=== PATIENT | female | born 1950 | race Caucasian/White ===

== ENCOUNTER 2016-12-23 15:51 | Inpatient (IN) | payer OTHER ==
[~2016-12-23] VITALS: Ht 161.3 cm; Wt 82.7 kg
--- NOTE | 2016-12-23 15:59 | NUR ---
PT TO ER WITH HER NEIGHBOR, PT NOTED WITH SLURRED SPEECH, STATES THAT SHE STARTED DROOLING LAST PM AND AROUND 2 PM THIS AFTERNOON WHILE ON PHONE WITH HER FRIEND AND HER FRIEND NOTED SPEECH WAS OFF AND THAT SHE TOLD HER TO GO GET HELP, PT NOTED WITH L SIDE FACIAL DROOP, ABLE TO RAISE EYEBROWS EQUALLY , EQUAL STRENGTH BILATERAL HAND GRASP . PT WALKED TO HER NEIGHBORS AND THEY DROVE HER TO ER. PT WEIGHT 182.4 AT TRIAGE. CHARGE NURSE AWARE
--- NOTE | 2016-12-23 16:09 | NUR ---
PT TEXTING ON CELL PHONE APPEARS TO HAVE DEXTERITY. EKG IN PROGRESS.
--- NOTE | 2016-12-23 16:11 | NUR ---
NERI HANKINS - [facility] [phone] AVALIABLE FOR RIDE HOME IF NEEDED
[2016-12-23] MEDS ORDERED: LISINOPRIL40 M1 PO (16:27)
[2016-12-23] MEDS ORDERED: ATORVASTATIN CA10 M1 PO (16:28)
[2016-12-23] MEDS ORDERED: MULTI-DAY VITA1 EACH PO (16:28)
[2016-12-23] MEDS ORDERED: VERAMYST10 GM NASB (16:28)
[2016-12-23] MEDS ORDERED: ZOLPIDEM TARTRA10 M1 PO (16:28)
--- NOTE | 2016-12-23 16:32 | ED NEURO DEFICIT/STROKE ---
History of Present Illness General Chief Complaint: Neuro Symptoms/ Deficit Stated Complaint: ?CVA Source: patient Exam Limitations: no limitations Vital Signs & Intake/Output Vital Signs & Intake/Output Vital Signs Date Time Temp Pulse Resp B/P Pulse O2 O2 Flow FiO2 Ox Delivery Rate 12/23 1807 72 18 143/67 96 Room Air 12/23 1552 97.1 82 18 173/84 98 Room Air Allergies Coded Allergies: NO KNOWN ALLERGIES (11/01/11) Reconcile Medications Atorvastatin Calcium 10 MG TABLET 1 TAB PO DAILY CHOLESTEROL (Reported) Fluticasone Furoate (Veramyst) 27.5 MCG/ACTUATION SPRAY.SUSP 2 SPRAY NASB PRN ALLERGIES (Reported) Lisinopril 40 MG TABLET 1 TAB PO DAILY BP (Reported) Multivitamin (Multi-Day Vitamins) 1 EACH TABLET 1 TAB PO DAILY SUPPLEMENT ( Reported) Zolpidem Tartrate 10 MG TABLET 1 TAB PO PRN SLEEP (Reported) Triage Note: PT TO ER WITH HER NEIGHBOR, PT NOTED WITH SLURRED SPEECH, STATES THAT SHE STARTED DROOLING LAST PM AND AROUND 2 PM THIS AFTERNOON WHILE ON PHONE WITH HER FRIEND AND HER FRIEND NOTED SPEECH WAS OFF AND THAT SHE TOLD HER TO GO GET HELP, PT NOTED WITH L SIDE FACIAL DROOP, ABLE TO RAISE EYEBROWS EQUALLY , EQUAL STRENGTH BILATERAL HAND GRASP . PT WALKED TO HER NEIGHBORS AND THEY DROVE HER TO ER. PT WEIGHT 182.4 AT TRIAGE Triage Nurses Notes Reviewed? yes HPI: Patient presents for evaluation of drooling from the left side of her mouth with slurred speech that began 2 PM today, abruptly, while speaking with a family member. She denies any associated extremity weakness. He denies any prior episodes. There is nothing that seems to make the drooling better. With more specific questioning the patient now admits that she began drooling yesterday and noticed the slurred speech beginning today. The drooling has been constant since onset. Past History Travel History Traveled to [place] past 21 day No Medical History Any Pertinent Medical History? 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 No Review of Systems Review of Systems Constitutional: Reports: no symptoms. EENTM: Reports: no symptoms. Respiratory: Reports: no symptoms. Cardiovascular: Reports: no symptoms. GI: Reports: no symptoms. Genitourinary: Reports: no symptoms. Musculoskeletal: Reports: no symptoms. Skin: Reports: no symptoms. Neurological/Psychological: Reports: see HPI. Hematologic/Endocrine: Reports: no symptoms. Immunologic/Allergic: Reports: no symptoms. All Other Systems: Reviewed and Negative Physical Exam Physical Exam General Appearance: EE BELOW Cranial Nerves: SEE BELOW Comments: Gen.: Well-nourished, well-developed, no acute respiratory distress. Head: Normocephalic, atraumatic. Face: Normal sensation to light touch bilaterally Eyes: Normal inspection bilaterally, PERRLA, EOMI Ears: Normal inspection bilaterally Nose: Normal inspection Throat/mouth : Moist mucosa, drooling from the left side of the mouth Neck: Supple, full range of motion, no goiter Heart: Regular rate and rhythm, no murmurs rubs or gallops Lungs: Clear to auscultation bilaterally with normal air entry Chest: Nontender Back: Normal range of motion Abdomen: Soft, nontender, nondistended, normal bowel sounds Extremities: Normal range of motion grossly, equal radial pulses, no cyanosis clubbing or edema, no apparent weakness or dysmetria Neurologic: Left mouth droop and drooling with sparing of the left forehead, speech is slurred Skin: warm and dry Psychiatric: Calm, cooperative, no apparent delusions or hallucinations Core Measures CVA/TIA Diagnosis: No Severe Sepsis Present: No Septic Shock Present: No Progress Differential Diagnosis: Koch's Palsy, intracranial mass/tumor, stroke Plan of Care: Orders Procedure Date/time Status Nothing by Mouth 12/24 B Active Misc Message 12/23 185 Active ED Holding Orders 12/23 1852 Active Vital Signs 12/23 1852 Active Code Status 12/23 1852 Active Patient Data 12/23 1842 Active MRI-HEAD W/O LEA 12/23 1724 Active PROTHROMBIN TIME 12/23 1631 Complete CBC WITHOUT DIFFERENTIAL 12/23 1631 Complete BASIC METABOLIC PANEL 12/23 1631 Complete EKG 12/23 1606 Active Laboratory Tests 12/23/16 1639: Anion Gap 12, Estimated GFR > 60, BUN/Creatinine Ratio 22.9, Glucose 101 H, Calcium 9.6, PT 11.5, INR 1.10, CBC w Diff NO MAN DIFF REQ, RBC 4.70, MCV 91.0, MCH 30.5, RDW 12.8, MPV 7.8, Gran % 68.8, Lymphocytes % 22.3, Monocytes % 7.3, Eosinophils % 1.1, Basophils % 0.5, Absolute Granulocytes 6.1, Absolute Lymphocytes 2.0, Absolute Monocytes 0.7 H, Absolute Eosinophils 0.1, Absolute Basophils 0, PUBS MCHC 33.6 Initial ED EKG: NSR, rate (87), no ST T wave changes Comments: PER RADIOLOGIST: EDEMA OF RIGHT FRONTAL REGION WITH POSSIBLE CENTRAL MASS. SLIGHT MASS EFFECT. Departure Departure Disposition: STILL A PATIENT Condition: Stable Clinical Impression Primary Impression: Brain tumor Secondary Impressions: Facial droop Referrals: DONNY SANCHEZ MD (PCP/Family) Departure Forms: Customer Survey General Discharge Information Admission Note Spoke With: EVAN OLMOS MD Documentation of Exam: Documentation of any treatments & extenuating circumstances including Concerns Regarding Discharge (functional status, medication knowledge or non-compliance, living conditions, etc.) that warrant an admission rather than observation: Patient has a newly diagnosed brain tumor with regional edema and mass effect. She also has a left mouth droop with drooling. She is now at high risk of seizures and worsening strokelike symptoms given the mass effect of her tumor. The patient should be treated with IV antiseizure medications and IV steroids to prevent seizures and treat the associated edema. She should have a I'm very malignancy survey for possible metastatic disease to the brain. Hematology oncology and neurology consultations should be considered for multidisciplinary treatment. The patient will require a multiple day hospitalization to fully evaluate this patient's unfortunate disease.
--- NOTE | 2016-12-23 16:41 | NUR ---
PT SPEECH IS THICK BUT GAIT STEADY, ALERT COOP, PT IS VERY DIFFICULT TO DIRECT, PT HAS HER OWN AGENDA AT HER OWN PACE AND WILL NOT BE HURRIED, PT ASKED SEVERAL TIMES TO GET ONTO STRETCHER OFR LAB DRAW, CT TO ROOM FOR CT BUT PT WAS STANDING AT BEDSIDE AND INSISTED ON FINISHING WHAT SHE WAS DOING.
--- NOTE | 2016-12-23 16:46 | NUR ---
STROKE ALERT CALLED AT THIS TIME PER MD LOWERY
[2016-12-23 16:53] LABS: ABSOLUTE BASOPHIL COUNT 0 /CUMM (0.0-0.2); ABSOLUTE EOSINOPHIL COUNT 0.1 /CUMM (0.0-0.7); ABSOLUTE GRANULOCYTE CT 6.1 /CUMM (1.4-6.5); ABSOLUTE MONOCYTE COUNT 0.7 /CUMM (0.10-0.60); BASOPHIL % 0.5 % (0.0-2.0); EOSINOPHIL % 1.1 % (0-5); GRANULOCYTE % 68.8 % (42.2-75.2); HEMATOCRIT 42.8 % (37-47); MEAN CORPUSCULAR HGB 30.5 PG (27.0-31.0); MEAN CORPUSCULAR HGB CONC 33.6 G/DL (33.0-37.0); MEAN PLATELET VOLUME 7.8 FL (7.4-10.4); PLATELET COUNT 391 /CUMM (130-400); RBC DISTRIBUTION WIDTH 12.8 % (11.5-14.5); WHITE BLOOD CELL COUNT 8.9 /CUMM (4.8-10.8)
[2016-12-23 17:06] LABS: PT 11.5 SEC (9.4-12.5)
--- NOTE | 2016-12-23 17:07 | CT SCAN REPORT ---
EXAMINATION: CT HEAD WITHOUT CONTRAST CLINICAL INFORMATION: Left mild drooling and slurred speech. COMPARISON: None. TECHNIQUE: Contiguous axial imaging was performed from the skull base to vertex without intravenous administration of contrast. DLP: 600.7 mGy-cm. FINDINGS: There is a rounded area of vasogenic edema within the right frontal lobe posterolaterally with surrounding sulcal effacement and mild mass effect upon the right lateral ventricle. There is a rounded focus of central hypoattenuation centered within this region of edema as seen on image 27/64 of series 2, measuring approximately 2 mm in transverse diameter. The edema extends into the benjamin radiata and superior aspect of the right basal ganglia. No additional lesions are identified. No midline shift or herniation. Overlying holcomb matter appears well-preserved and areas, though there is loss of the normal holcomb matter signal superiorly. No acute intracranial hemorrhage or extra-axial fluid collections are identified. Aside from the mass effect upon the right lateral ventricle, the ventricles are normal in size. The osseous structures and soft tissues are normal. The mastoid air cells and visualized portions of the paranasal sinuses are well aerated. IMPRESSION: Large rounded area of vasogenic edema in the right posterior frontal lobe producing local mass effect. A subtle 2 cm rounded lesion is centered within this region of edema and is concerning for neoplasm. Infection is also on the differential. Further evaluation with MRI with and without contrast is advised. No superimposed infarctions are identified, though the degree of edema superiorly does cause loss of the normal cortical holcomb matter density, limiting sensitivity. This critical result was discussed by telephone with Dr. Koch at 4:56 PM on 12/23/2016 .
--- NOTE | 2016-12-23 18:13 | NUR ---
PER POLYGRAPH OPERATOR WILL HAVE TO WAIT FOR PHARMACIST FOR FILTER.
--- NOTE | 2016-12-23 20:04 | NUR ---
[facility] ASSIGNMENT [phone]
--- NOTE | 2016-12-23 20:16 | NUR ---
REPORT GIVEN TO KIRTI KATHLEEN
--- NOTE | 2016-12-23 20:39 | NUR ---
PT ASKING FOR FOOD. REMINDED SHE IS NPO AT THIS TIME.
[2016-12-23 21:00] VITALS: BP 142/70
--- NOTE | 2016-12-23 21:33 | History & Physical ---
ANGY VIDAL MD 12/23/16 2132: General Information and HPI MD Statement: I have seen and personally examined EPI TYSON and documented this H&P. The patient is a 66 year old F who presented with a patient stated chief complaint of [drooling and slurring of speech]. 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 Symptoms started suddenly without any weakness/tingling/sensory loss. She is at her baseline able to walk around. She denies any difficulty swallowing, aspiration, changes in vision, syncopal episodes, lightheadedness, dizziness. She also denies any recent infections, cough, chest pain, shortness of breath. She denies any recent changes in mentation, weight. She denies any nausea, vomiting, diarrhea, changes in bowel/bladder habits, abdominal pain. She denies any cough with hemoptysis. Of note: Patient had right medial visual field defect along with scotomas. She passed bedside swallow evaluation. Allergies/Medications Allergies: Coded Allergies: NO KNOWN ALLERGIES (11/01/11) Home Med list Atorvastatin Calcium 10 MG TABLET 1 TAB PO 1700 HLD (Reported) Fluticasone Furoate (Veramyst) 27.5 MCG/ACTUATION SPRAY.SUSP 2 SPRAY NASB PRN ALLERGIES (Reported) Lisinopril 40 MG TABLET 1 TAB PO AT BEDTIME HTN (Reported) Multivitamin (Multi-Day Vitamins) 1 EACH TABLET 1 TAB PO DAILY SUPPLEMENT ( Reported) Zolpidem Tartrate 10 MG TABLET 1 TAB PO PRN SLEEP (Reported) Compliance With Home Meds: FAIR Past History Travel History Traveled to [place] past 21 day No Medical History Neurological: NONE EENT: RETINAL ARTERY OCCLUSION Cardiovascular: hypertension Respiratory: NONE Gastrointestinal: NONE Hepatic: NONE Renal: NONE Musculoskeletal: NONE Psychiatric: NONE Endocrine: NONE Blood Disorders: NONE Cancer(s): NONE 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 Home Who Do You Live With? self Services at Home: None Smoking Status: Never Smoked ETOH Use: denies use Illicit Drug Use: denies illicit drug use Functional Ability ADLs Independent: dressing, eating, toileting, bathing. Ambulation: independent IADLs Independent: shopping, housework, finances, food prep, telephone, transportation , medication admin. Review of Systems Review of Systems Constitutional: Reports: see HPI. Denies: malaise, weakness, unexplained weight loss. EENTM: Reports: see HPI. Cardiovascular: Reports: no symptoms, see HPI. Respiratory: Reports: no symptoms, see HPI. GI: Reports: no symptoms, see HPI. Genitourinary: Reports: no symptoms, see HPI. Neurological/Psychological: Reports: emotional problems, headache. Denies: numbness, paresthesia, pre- existing deficit, petit mal seizures, tingling, tonic-clonic seizures. Hematologic/Endocrine: Reports: no symptoms. All Other Systems: Reviewed and Negative Comments ROS negative except the above. Exam & Diagnostic Data Last 24 Hrs of Vital Signs/I&O Vital Signs Date Time Temp Pulse Resp B/P Pulse O2 O2 Flow FiO2 Ox Delivery Rate 12/24 0127 97.6 96 20 140/80 12/24 0011 98.1 87 20 166/92 99 Room Air 12/23 2100 97.9 76 18 142/70 95 Room Air 12/23 1930 99.4 78 18 169/70 98 Room Air 12/23 1807 72 18 143/67 96 Room Air 12/23 1552 97.1 82 18 173/84 98 Room Air Intake & Output 12/24 0800 12/24 0000 12/23 1600 Intake Total 240 Output Total 300 Balance -60 Intake, Oral 240 Output, Urine 300 Patient 82.554 kg 82.667 kg Weight Physical Exam General Appearance Alert, Oriented X3, Cooperative, No Acute Distress Skin No Rashes, No Breakdown HEENT Atraumatic, PERRLA, EOMI Neck Supple, No JVD Cardiovascular Regular Rate, Normal S1, Normal S2, No Murmurs Lungs Clear to Auscultation, Normal Air Movement Abdomen Normal Bowel Sounds, Soft, No Tenderness Neurological Normal Gait, Normal Speech, Strength at 5/5 X4 Ext, Normal Tone, Sensation Intact, Cranial Nerves 3-12 NL, Reflexes 2+, weakness on the right side of the cheek without any sensory loss. Extremities No Clubbing, No Cyanosis, No Edema Vascular Pulses Symmetrical Body Front and Back (Adult) 1) right sided drooling and weakness Last 24 Hrs of Labs/Valentino: Laboratory Tests 12/23/16 1639: Anion Gap 12, Estimated GFR > 60, BUN/Creatinine Ratio 22.9, Glucose 101 H, Calcium 9.6, PT 11.5, INR 1.10, CBC w Diff NO MAN DIFF REQ, RBC 4.70, MCV 91.0, MCH 30.5, RDW 12.8, MPV 7.8, Gran % 68.8, Lymphocytes % 22.3, Monocytes % 7.3, Eosinophils % 1.1, Basophils % 0.5, Absolute Granulocytes 6.1, Absolute Lymphocytes 2.0, Absolute Monocytes 0.7 H, Absolute Eosinophils 0.1, Absolute Basophils 0, PUBS MCHC 33.[address] Other Results CT head IMPRESSION: Large rounded area of vasogenic edema in the right posterior frontal lobe producing local mass effect. A subtle 2 cm rounded lesion is centered within this region of edema and is concerning for neoplasm. Infection is also on the differential. Further evaluation with MRI with and without contrast is advised. No superimposed infarctions are identified, though the degree of edema superiorly does cause loss of the normal cortical holcomb matter density, limiting sensitivity. 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 ER Vital signs Temperature 91.4, pulse 78, blood pressure 173/84 mmHg, on room air Labs are unremarkable CT head IMPRESSION: Large rounded area of vasogenic edema in the right posterior frontal lobe producing local mass effect. A subtle 2 cm rounded lesion is centered within this region of edema and is concerning for neoplasm. Infection is also on the differential. Further evaluation with MRI with and without contrast is advised. No superimposed infarctions are identified, though the degree of edema superiorly does cause loss of the normal cortical holcomb matter density, limiting sensitivity. Plan Admit to general medicine floor Brain mass with vasogenic edema on CT scan * slurring speech along with drooling on left side * Facial nerve lower motor neuron disease is the only apparent deficit * Received a single dose of IV Dilantin 1000 milligrams and IV DEXA 8 mg in ER * Continue IV dexamethasone 4 mg every 6 hours, along with Dilantin 100 mg every 8 by mouth. * Neuro consult in a.m. * MRA brain, Friday * Neurochecks every 4 hours History of hypertension * Continue her home medication lisinopril Hyperlipidemia * Continue atorvastatin DVT prophylaxis * Alps CODE STATUS * Full code As Ranked By This Provider Problem List: 1. Brain tumor 2. Facial droop 3. RT CRAO Core Measures/Miscellaneous Acute Coronary Syndrome ACS Diagnosis: No Cerebrovascular Accident CVA/TIA Diagnosis: No Congestive Heart Failure CHF Diagnosis: No Venous Thromboembolism VTE Risk Factors: Cancer/chemo/oth therapy VTE Prophylaxis Ordered Inpt: Pharm- Lovenox No Mech VTE prophylaxis d/t: No contraindications No VTE Pharm Prophylaxis d/t: No contraindications VTE Diagnosis: No VTE Type: NONE VTE Confirmed by (Test): NONE Severe Sepsis Severe Sepsis Present: No Septic Shock Septic Shock Present: No Miscellaneous Documentation Attending Case Discussed With: EVAN OLMOS MD Primary Care Physician: DONNY SANCHEZ MD Patient sees these Specialists Unknown Level of Patient Care: General Medicine JONY STAPLETON MD 12/24/16 0523: Resident Review Statement Resident Statement: examined this patient, discussed with international exchange coordinator, agreed with international exchange coordinator, reviewed EMR data (avail), reviewed images, amended to note Other Findings: This is 66 year female with past medical history of right retinal artery occlusion in 1998, hypertension, left carotid artery disease, ocular migraine presented to ER with chief complaint of left-sided drooling associated with slurred speech which started around a day prior to admission. Patient was fine up until one night prior to admission when while talking to her friend over phone she developed slurring of speech. Her symptoms persisted over past 24 hours with increased drooling from the left side corner of the mouth this afternoon, she decided to come to ER for further evaluation. Patient reported no other associated weakness of extremities, tingling, sensory loss, headache, difficulty swallowing, change in vision, loss of consciousness, seizure like activity, fever, chills, recent travel, abdominal pain, any GI symptoms or upper respiratory infection. Patient had a colonoscopy 20 years prior to admission and was normal at that time. Her vitals on admission were T 97.1, HR 82, RR 18, BP 173/84, O2 sat 98% on room air. On physical exam patient noted completely alert oriented 3 in no acute distress , HEENT PERRLA EOMI, noted left sided did facial droop, heart S1-S2 normal without murmur, lungs clear on auscultation, abdomen soft nontender nondistended with preserved bowel sounds, no peripheral edema, no focal gross neuro deficit, strength 5/5 in all 4 extremities with preserved sensory, Babinski negative, [id number] test negative, visual field intact except right eye noted nasal visual field defect which has been there since 1998. Labs noted WBC 8.9, H&H 14.4/42.8, normal electrolytes, BUN 16, creatinine 0.7, blood glucose 101, INR 1.10 CT head revealed large rounded area of vasogenic edema in right posterior frontal lobe producing local mass effect with 2 cm lesion within this area concerning for neoplasm EKG noted with normal sinus rhythm at rate of 87, no acute ST-T changes, QTc 4 57 Assessment: This is 66 year female with past medical history of retinal artery occlusion, ocular migraine, hypertension, left carotid artery disease presented from home with chief complaint of one-day history of left-sided facial droop with slurring of speech found to have large right posterior frontal lobe vasogenic edema with 2 cm mass concerning for neoplasm. 1. Brain lesion with Vasogenic edema of right posterior frontal lobe - Admit to general medicine floor - Monitor neuro checks every 4 hourly - Patient received loading dose phenytoin and Decadron in ER - Continue Decadron 4 mg every 6 hourly and phenytoin 100 mg every 8 hourly for seizure precaution - Neurology consult - Rule out any primary or secondary source of malignancy including screening colonoscopy and mammogram as outpatient - Get MRI of brain 2. Hypertension Continue home dose lisinopril 40 mg daily 3. Hyperlipidemia Continue statin 4. DVT prophylaxis Mechanical due to concern of intracranial bleed 5. Full code NICKOLASANASTASIIAMOLLY 12/24/16 0615: Attending MD Review Statement Attending Statement Attending MD Statement: examined this patient, discuss w/resident/PA/MARKET CONSULTANT, agreed w/resident/PA/MARKET CONSULTANT, discussed with family, reviewed EMR data (avail), reviewed images, amended to note Attending Assessment/Plan: Cc: Left-sided facial droop and drooling slurred speech PMHx: HTN, retired artery occlusion, ocular migraine Patient came with left-sided facial drooping and drooling started yesterday, slurred speech started today. She was ambulating well and no other neurological weakness, no choking on food. Complete 14 point ROS negative, no constitutional symptoms with weight loss or night sweats. No recent travels Vitals: Afebrile, pulse, RRR, blood pressure, O2 saturation within acceptable range. On exam: A O 3, coherent, pupils equal reactive bilaterally, left-sided facial droop and obvious drooling. Strength in upper extremities and lower extremities intact, gait normal. RS: Clear to auscultate bilaterally. CVS: S1-S2 , RRR. Abdomen: Obese, soft, NT, bowel sounds present no dependent edema Labs: CBC, BMP unremarkable. CT head: large rounded area of vasogenic edema in the right posterior frontal lobe producing local mass effect, concern of neoplasm. Assessment and plan #1 brain lesion with vasogenic edema: MRI was ordered in ER but could not get done. Neurologic consult in a.m., continue dexamethasone, continue Dilantin by mouth until seen by neurologist for seizure prophylaxis. ? Infectious process, no recent travels, await MRI for further workup, patient appeared very anxious after discussing about brain lesion and further plan. #2 HTN: Continue home medications #3 DVT prophylaxis with Lovenox, adequate pain control.
[2016-12-24 00:11] VITALS: BP 166/92
--- NOTE | 2016-12-24 06:18 | Admission Certification ---
Admission Certification Certification Statement - As attending physician, I certify that at the time of - admission, based on clinical presentation, severity of - symptoms, need for further diagnostic testing and - therapeutic interventions, and risk of adverse outcomes - without in-hospital treatment, in my clinical assessment, - this patient requires an acute hospital stay for a minimum - of two nights or longer. I have also considered psychsocial - factors such as support system, advanced age, financial - issues, cognitive issues, and failed out-patient treatments, - past re-admission history, safety of patient, and lack of - compliance as applicable. Specific rationale supporting this admission is: Right-sided brain lesion with vasogenic edema with mass effect
[2016-12-24 06:36] VITALS: BP 146/70
--- NOTE | 2016-12-24 07:13 | PN- Housestaff ---
Subjective Follow-up For: Brain mass Slurred speech Subjective: Patient seen and examined. She is seen walking around with normal gait. She appears to be in no acute distress. She admits that she is concerned about her "brain tumor". She does not feel like she has incurred any new neurological problems as she has been walking around all morning and does not feel weak, confused, or forgetful. She reports persistence of her slurred speech, drooped face, and persistent drooling. Otherwise she denies any blurred/double vision, confusion, gait imbalance, dizziness, headache, fever, chills, chest pain, palpitations, shortness of breath, cough, nausea, vomiting, diarrhea, numbness/tingling. No overnight events reported. Review of Systems Constitutional: Reports: see HPI. Objective Last 24 Hrs of Vital Signs/I&O Vital Signs Date Time Temp Pulse Resp B/P Pulse O2 O2 Flow FiO2 Ox Delivery Rate 12/24 0636 98.7 65 18 146/70 96 Room Air 12/24 0127 97.6 96 20 140/80 12/24 0011 98.1 87 20 166/92 99 Room Air 12/23 2100 97.9 76 18 142/70 95 Room Air 12/23 1930 99.4 78 18 169/70 98 Room Air 12/23 1807 72 18 143/67 96 Room Air 12/23 1552 97.1 82 18 173/84 98 Room Air Intake & Output 12/24 1600 12/24 0800 12/24 0000 Intake Total 500 240 Output Total 300 Balance 500 -60 Intake, IV 0 Intake, Oral 500 240 Number 0 Bowel Movements Output, Urine 300 Patient 82.554 kg Weight Physical Exam General Appearance: Alert, Oriented X3, Cooperative, No Acute Distress Other Physical Findings: General -well-developed, well-nourished elderly woman in no acute distress HEENT - NCAT, PERRL, EOMI, anicteric sclera Cardio - S1, S2 w/o murmurs/gallops/rubs Resp - CTA bilaterally w/o wheezing/rhochi/crackles GI - soft, nontender, nondistended, bowel sounds present Neuro - Awake and alert, CN II - XII grossly intact, left sided facial droop with drooling, slurred speech, gait intact, coordination intact, strength 5/5 in all 4 extremities Extremities - no edema, pulses intact Current Medications: Current Medications Sig/Arnoldo Start time Last Medication Dose Route Stop Time Status Admin Acetaminophen 650 MG Q6P PRN 12/23 2215 AC 12/24 PO 1150 Atorvastatin Calcium 10 MG 1700 12/24 1700 AC PO Dexamethasone 4 MG Q6 12/24 0130 AC 12/24 PO 1149 Dexamethasone 8 MG ONCE ONE 12/23 1730 DC 12/23 IV 12/23 1731 1811 Lisinopril 40 MG DAILY@2200 12/24 2200 AC PO Lisinopril 40 MG DAILY 12/23 2200 DC 12/24 PO 0127 Phenytoin 100 MG Q8 12/24 0600 AC 12/24 PO 0603 Phenytoin 0 .STK-MED ONE 12/23 1821 DC .ROUTE Phenytoin 1,000 MG ONCE ONE 12/23 1730 DC 12/23 Sodium Chloride 250 ML IV 12/23 1801 1834 Zolpidem Tartrate 10 MG AT BEDTIME PRN 12/23 2200 AC 12/24 PO 0131 Last 24 Hrs of Lab/Valentino Results Last 24 Hrs of Labs/Mics: Laboratory Tests 12/24/16 0805: Anion Gap 15, Estimated GFR > 60, BUN/Creatinine Ratio 20.0 12/23/16 1639: Anion Gap 12, Estimated GFR > 60, BUN/Creatinine Ratio 22.9, Glucose 101 H, Calcium 9.6, PT 11.5, INR 1.10, CBC w Diff NO MAN DIFF REQ, RBC 4.70, MCV 91.0, MCH 30.5, RDW 12.8, MPV 7.8, Gran % 68.8, Lymphocytes % 22.3, Monocytes % 7.3, Eosinophils % 1.1, Basophils % 0.5, Absolute Granulocytes 6.1, Absolute Lymphocytes 2.0, Absolute Monocytes 0.7 H, Absolute Eosinophils 0.1, Absolute Basophils 0, PUBS MCHC 33.6 Assessment/Plan Assessment: Patient continues to experience left sided facial droop, slurred speech, and drooling. She appears confused, tangential, and lacks insight into her condition. She was seen by neurology today for which recommendations to obtain an MRI and EEG were made. She is to be continued off anti-epileptics. Decadron is continued, fingersticks monitored. Frontal Lobe Tumor with Vasogenic edema: Left sided facial droop and slurred speech without any other obvious neurological deficits on admission. CT Head demonstrates frontal lobe tumor with associated vasogenic edema. -Decadron 4mg PO Q6H -Atorvastatin 10mg PO Daily -Neurology Consult -F/U MRI tomorrow -F/U EEG Hypertension - stable, continue lisinopril Pain Plan: -Acetaminophen 650mg PO Q6H PRN PAIN 1-3 Diet - Heart Healthy Diet DVT PPx - Mechanical Code Status - FULL CODE Problem List: 1. Brain tumor Pain Ratin Pain Location: None Pain Goal: Remain pain free Pain Plan: As noted in plan Tomorrow's Labs & Rationales: None
[2016-12-24 14:08] VITALS: BP 122/74
--- NOTE | 2016-12-24 15:29 | Cons- Neurology ---
General Information and HPI Consulting Request Date of Consult: 12/24/16 Requested By: DIMITRI SHOEMAKER MD Reason for Consult: Left sided weakness and slurred speech Source of Information: patient, old records Exam Limitations: no limitations History of Present Illness: This is a pleasant 66 year old woman who came into the hospital after developing new slurred speech. Her friend spoke to her on the phone and urged her to come to the hospital for evaluation. She notes, that over the last 3 days she saw gradual onset of left facial droop with drooloing and then slurred speech. She denies any note of left sided weakness (despite having it). She denies any tingling or numbness. Denies any other focal symptom or headache. In the ED she was found to have a right frontal mass with surrounding edema on NCHCT. This mas was otherwise poorly defined. She denies any other weight loss or systemic symptoms. She never lost consciousness. Allergies/Medications Allergies: Coded Allergies: NO KNOWN ALLERGIES (11/01/11) Home Med List: Atorvastatin Calcium 10 MG TABLET 1 TAB PO 1700 HLD (Reported) Fluticasone Furoate (Veramyst) 27.5 MCG/ACTUATION SPRAY.SUSP 2 SPRAY NASB PRN ALLERGIES (Reported) Lisinopril 40 MG TABLET 1 TAB PO AT BEDTIME HTN (Reported) Multivitamin (Multi-Day Vitamins) 1 EACH TABLET 1 TAB PO DAILY SUPPLEMENT ( Reported) Zolpidem Tartrate 10 MG TABLET 1 TAB PO PRN SLEEP (Reported) Current Medications: Current Medications Sig/Arnoldo Start time Last Medication Dose Route Stop Time Status Admin Acetaminophen 650 MG Q6P PRN 12/23 2215 AC 12/24 PO 1150 Atorvastatin Calcium 10 MG 1700 12/24 1700 AC PO Dexamethasone 4 MG Q6 12/24 0130 AC 12/24 PO 1149 Dexamethasone 8 MG ONCE ONE 12/23 1730 DC 12/23 IV 12/23 1731 1811 Lisinopril 40 MG DAILY@2200 12/24 2200 AC PO Lisinopril 40 MG DAILY 12/23 2200 DC 12/24 PO 0127 Phenytoin 100 MG Q8 12/24 0600 AC 12/24 PO 1422 Phenytoin 0 .STK-MED ONE 12/23 1821 DC .ROUTE Phenytoin 1,000 MG ONCE ONE 12/23 1730 DC 12/23 Sodium Chloride 250 ML IV 12/23 1801 1834 Zolpidem Tartrate 10 MG AT BEDTIME PRN 12/23 2200 AC 12/24 PO 0131 Review of Systems Review of Systems: Otherwise normal to the ten point complete review of system. 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 Home Who Do You Live With? self Services at Home: None Smoking Status: Never Smoked ETOH Use: denies use Illicit Drug Use: denies illicit drug use Functional Ability ADLs Independent: dressing, eating, toileting, bathing. Ambulation: independent IADLs Independent: shopping, housework, finances, food prep, telephone, transportation , medication admin. Exam & Diagnostic Data Vital Signs and I&O Vital Signs Date Time Temp Pulse Resp B/P Pulse O2 O2 Flow FiO2 Ox Delivery Rate 12/24 1408 97.8 70 20 122/74 93 Room Air 12/24 0636 98.7 65 18 146/70 96 Room Air 12/24 0127 97.6 96 20 140/80 12/24 0011 98.1 87 20 166/92 99 Room Air 12/23 2100 97.9 76 18 142/70 95 Room Air 12/23 1930 99.4 78 18 169/70 98 Room Air 12/23 1807 72 18 143/67 96 Room Air 12/23 1552 97.1 82 18 173/84 98 Room Air Intake & Output 12/24 1600 12/24 0800 12/24 0000 Intake Total 1000 500 240 Output Total 300 Balance 1000 500 -60 Intake, IV 0 Intake, Oral 1000 500 240 Number 0 Bowel Movements Output, Urine 300 Patient 182 lb Weight Physical Exam: Alert and oriented x3. Fluent and comprehends. Slightly dysarthric. S1 and S2 are normal. RRR. EOMI with right gaze horizontal nystagmus, MAICO, lower left facial droop with drooling from the corner of the mouth. Tongue is midline and uvula raises equally. Hearing intact and trapezius is strong. VF are full. Strength is 5/5 throughout with exception of proximal weakness +4/5 on the left and a resultant drift. Sensory exam is normal throughout including double simultaneous stimulation. Upgoing toe on the left. FNF is normal. Gait deferred. Last 48 Hours of Lab Results: Laboratory Tests 12/24 12/23 0805 1639 Chemistry Sodium (137 - 145 mmol/L) 137 139 Potassium (3.5 - 5.1 mmol/L) 4.6 4.4 Chloride (98 - 107 mmol/L) 102 103 Carbon Dioxide (22 - 30 mmol/L) 21 L 24 Anion Gap (5 - 16) 15 12 BUN (7 - 17 mg/dL) 16 16 Creatinine (0.5 - 1.0 mg/dL) 0.8 0.7 Estimated GFR (>60 ml/min) > 60 > 60 BUN/Creatinine Ratio (7 - 25 %) 20.0 22.9 Glucose (65 - 99 mg/dL) 101 H Calcium (8.4 - 10.2 mg/dL) 9.6 Coagulation PT (9.4 - 12.5 SEC) 11.5 INR (0.90 - 1.19) 1.10 Hematology CBC w Diff NO MAN DIFF REQ WBC (4.8 - 10.8 /CUMM) 8.9 RBC (4.20 - 5.40 /CUMM) 4.70 Hgb (12.0 - 16.0 G/DL) 14.4 Hct (37 - 47 %) 42.8 MCV (81.0 - 99.0 FL) 91.0 MCH (27.0 - 31.0 PG) 30.5 RDW (11.5 - 14.5 %) 12.8 Plt Count (130 - 400 /CUMM) 391 MPV (7.4 - 10.4 FL) 7.8 Gran % (42.2 - 75.2 %) 68.8 Lymphocytes % (20.5 - 51.1 %) 22.3 Monocytes % (1.7 - 9.3 %) 7.3 Eosinophils % (0 - 5 %) 1.1 Basophils % (0.0 - 2.0 %) 0.5 Absolute Granulocytes (1.4 - 6.5 /CUMM) 6.1 Absolute Lymphocytes (1.2 - 3.4 /CUMM) 2.0 Absolute Monocytes (0.10 - 0.60 /CUMM) 0.7 H Absolute Eosinophils (0.0 - 0.7 /CUMM) 0.1 Absolute Basophils (0.0 - 0.2 /CUMM) 0 PUBS MCHC (33.0 - 37.0 G/DL) 33.6 Imaging/Other Studies: NCHCT>> IMPRESSION: Large rounded area of vasogenic edema in the right posterior frontal lobe producing local mass effect. A subtle 2 cm rounded lesion is centered within this region of edema and is concerning for neoplasm. Infection is also on the differential. Further evaluation with MRI with and without contrast is advised. No superimposed infarctions are identified, though the degree of edema superiorly does cause loss of the normal cortical holcomb matter density, limiting sensitivity. This critical result was discussed by telephone with Dr. Koch at 4:56 PM on 12/23/2016 . DICTATED BY: SHERYL GRACIA MD DATE/TIME DICTATED:12/23/161649 NURSING CLERK:JULEE DATE/TIME TRANSCRIBED:12/23/161649 CONFIDENTIAL, DO NOT COPY WITHOUT APPROPRIATE AUTHORIZATION. Assessment/Plan Assessment: 66 year old woman with previous retinal artery occlusion, now presenting with new onset left sided weakness and slurred speech. NCHCT reveals a large hypodensity that may be indicative of a mass consistent with the gradual progression of the symptoms. An atypical CVA cannot be ruled out without an MRI, although is less likely. Recommendations: 1. MRI brain with and without contrast. 2. Agree with Decadrpon 4mg q6h. 3. No indication for seizure prophylaxis unless the patient actually had a seizure which she did not. Stop Phenytoin. 4. EEG 5. Blood pressure control. 6. Once MRI reviewed will decide whether needs a screening CT of chest, abdomen and pelvis. YC Consult Acknowledgment - Thank you for your consult request.
--- NOTE | 2016-12-24 16:14 | PN- Att Addend ---
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 Pt found to have mass with vasogenic edema on CT head. Pt seen by neurology- planned for MRI tomorrow. cont on decadron. will f/u on Finger sticks.
[2016-12-24 22:21] VITALS: BP 140/70
--- NOTE | 2016-12-25 05:44 | NUR ---
NURSING NOTE: PT REQUESTED BAG FOR CELL PHONE. PT HAS BLACK FLIP PHONE WHICH SHE REMOVED BATTERY AND BACKING FROM. ALL 3 PIECES PLACED IN A BAG & IN PT'S NIGHT STAND.
[2016-12-25 06:44] VITALS: BP 140/70
--- NOTE | 2016-12-25 07:25 | PN- Housestaff ---
Subjective Follow-up For: Brain mass Slurred speech Subjective: Patient seen and examined. She is seen lying upright in her bed resting comfortably. He appears to be in no acute distress. She reports that her memory is "very good" today and that her speech has returned to normal. She does admit to having persistence of the left-sided facial droop, but otherwise does not notice any new neurologic issues that she is aware of. She says she gets up and walks around a lot and hasn't noticed any issue with this. She is oriented to person place and time. She still expresses concerns about her dog, possible surgical interventions and has many questions regarding her care. Additionally she denies any blurred/double vision, dizziness/lightheadedness, headache, fever, chills, chest pain, palpitations, shortness of breath, nausea, vomiting, diarrhea. No overnight events reported. Review of Systems Constitutional: Reports: see HPI. Objective Last 24 Hrs of Vital Signs/I&O Vital Signs Date Time Temp Pulse Resp B/P Pulse O2 O2 Flow FiO2 Ox Delivery Rate 12/25 1527 98.2 78 20 130/80 97 12/25 0644 98.1 83 20 140/70 95 Room Air 12/24 2221 98.3 86 18 140/70 96 Room Air 12/24 2152 84 142/80 Intake & Output 12/25 1600 12/25 0800 12/25 0000 Intake Total 800 650 400 Output Total Balance 800 650 400 Intake, Oral 800 650 400 Physical Exam General Appearance: Alert, Oriented X3, Cooperative, No Acute Distress Other Physical Findings: General -well-developed, well-nourished elderly woman in no acute distress HEENT - NCAT, PERRL, EOMI, anicteric sclera Cardio - S1, S2 w/o murmurs/gallops/rubs Resp - CTA bilaterally w/o wheezing/rhochi/crackles GI - soft, nontender, nondistended, bowel sounds present Neuro - Awake and alert, CN II - XII grossly intact, persistent left facial droop without further drooling, normal speech Extremities - no edema, pulses intact Current Medications: Current Medications Sig/Arnoldo Start time Last Medication Dose Route Stop Time Status Admin Acetaminophen 650 MG Q6P PRN 12/23 2215 AC 12/24 PO 1150 Atorvastatin Calcium 10 MG 1700 01/24 1700 AC 12/24 PO 1911 Dexamethasone 4 MG Q6 12/24 0130 AC 12/25 PO 1130 Diazepam 2 MG ONCE ONE 12/25 1315 DC 12/25 PO 12/25 1316 1321 Diazepam 2 MG ONCE ONE 12/25 0830 DC 12/25 PO 12/25 0831 1130 Lisinopril 40 MG DAILY@2200 12/24 2200 AC 12/24 PO 2152 Loratadine 10 MG DAILY 12/25 1000 AC 12/25 PO 1001 Sodium Chloride 2 SPRAY Q4P PRN 12/25 0830 AC 12/25 ALEXANDER 1001 Zolpidem Tartrate 10 MG AT BEDTIME PRN 12/23 2200 AC 12/24 PO 2316 Assessment/Plan Assessment: Patient demonstrates improved speech and drooling today, however hasn't obvious left-sided facial droop. She denies any new neurologic deficits and is still ambulating independently. She is very anxious and concerned about her medical condition and has many questions regarding imaging and potential future treatments. These questions were deferred until the MRI/EEG testing is complete and per neurology recommendations concerning the findings on these exams. She is continued on steroids. MRI results and neurology recommendations still pending. Frontal Lobe Tumor with Vasogenic edema: Left sided facial droop and slurred speech without any other obvious neurological deficits on admission. CT Head demonstrates frontal lobe tumor with associated vasogenic edema. -Decadron 4mg PO Q6H -Atorvastatin 10mg PO Daily -Neurology Consult -F/U MRI -F/U EEG Hypertension - stable, continue lisinopril Pain Plan: -Acetaminophen 650mg PO Q6H PRN PAIN 1-3 Diet - Heart Healthy Diet DVT PPx - Mechanical Code Status - FULL CODE Problem List: 1. Brain tumor Pain Ratin Pain Location: None Pain Goal: Remain pain free Pain Plan: As noted in plan Tomorrow's Labs & Rationales: None
--- NOTE | 2016-12-25 14:21 | NUR ---
SPEECH THERAPY: ATTEMPTED FOLLOWUP FOR COGNITIVE-LINGUISTIC EVAL. PT IS NAHID AT MRI. WILL FOLLOWUP 12/26. D/W RN.
[2016-12-25 15:27] VITALS: BP 130/80
--- NOTE | 2016-12-25 15:27 | PN- Att Addend ---
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 Pt found to have mass with vasogenic edema on CT head. Pt seen by neurology- planned for MRI and EEG today- results are pending. cont on decadron. Awaiting results to decide on disposition. Pt most likely can be discharged today or tomorrow . Will have sample case porter talk to pt to see if she will benefit from any home care.
--- NOTE | 2016-12-25 16:52 | MRI REPORT ---
EXAMINATION: MR BRAIN WITHOUT AND WITH CONTRAST CLINICAL INFORMATION: New onset slurred speech and drooling. Post brain mass. COMPARISON: CT scan of the head 12/23/2016. TECHNIQUE: MRI of the brain was obtained using routine sequences before and after the intravenous administration of 17 mL of OptiMARK. FINDINGS: There are 2 rim-enhancing masses in the left frontal lobe. Anteriorly and inferiorly the mass measures 1.2 x 2.2 x 1.7 cm, and the mass more superiorly and posteriorly measures 1.6 x 2.6 x 1.4 cm. Both these masses have central low signal on the T1 images and heterogenous signal on other sequences. There is extensive surrounding increased T2 and FLAIR signal in the white matter, consistent with vasogenic edema. There is mass effect on the right lateral ventricle with attenuation of the body, and there is mild midline shift to the left of 3 mm. There is a lacunar infarct in the left basal ganglia. There are no acute territorial infarcts. No extra-axial collection is visualized. Normal arterial and venous vascular flow voids are present. There is an empty sella. There have been bilateral lens extractions. The mastoid air cells are well aerated. There is mild mucoperiosteal thickening in the bilateral maxillary and ethmoid sinuses. IMPRESSION: 1. There are 2 rim-enhancing masses in the left frontal lobe with extensive surrounding vasogenic edema with mass effect and midline shift as described above. 2. Although 2 foci of abnormal signal and enhancement are demonstrated, the findings may be consistent with a primary aggressive intracranial neoplasm such as glioblastoma multiforme. Metastases cannot be excluded.
--- NOTE | 2016-12-25 19:44 | PN- Neurology ---
Subjective Subjective: No change. Review of Systems: No change. Objective Vital Signs and I&Os Vital Signs Date Time Temp Pulse Resp B/P Pulse O2 O2 Flow FiO2 Ox Delivery Rate 12/25 1527 98.2 78 20 130/80 97 12/25 0644 98.1 83 20 140/70 95 Room Air 12/24 2221 98.3 86 18 140/70 96 Room Air 12/24 2152 84 142/80 Intake & Output 12/25 1600 12/25 0800 12/25 0000 12/24 1600 12/24 0800 12/24 0000 Intake Total 800 232 879 0978 500 240 Output Total 300 Balance 800 985 416 9233 500 -60 Intake, IV 0 Intake, Oral 800 394 099 2921 500 240 Number 0 Bowel Movements Output, Urine 300 Patient 182 lb Weight Physical Exam: Left facial droop. Mild left hemiparesis. Upgoing left toe. Current Medications: Current Medications Sig/Arnoldo Start time Last Medication Dose Route Stop Time Status Admin Acetaminophen 650 MG Q6P PRN 12/23 2215 AC 12/24 PO 1150 Atorvastatin Calcium 10 MG 1700 12/24 1700 AC 12/25 PO 1713 Dexamethasone 4 MG Q6 12/24 0130 AC 12/25 PO 1713 Diazepam 2 MG ONCE ONE 12/25 1315 DC 12/25 PO 12/25 1316 1321 Diazepam 2 MG ONCE ONE 12/25 0830 DC 12/25 PO 12/25 0831 1130 Lisinopril 40 MG DAILY@0 12/24 2200 AC 12/24 PO 2152 Loratadine 10 MG DAILY 12/25 1000 AC 12/25 PO 1001 Sodium Chloride 2 SPRAY Q4P PRN 12/25 0830 AC 12/25 ALEXANDER 1001 Zolpidem Tartrate 10 MG AT BEDTIME PRN 12/23 2200 AC 12/24 PO 2316 Results Last 24 Hours of Lab Results: EEG - subclinical status partialis continua. Recent Imaging Studies: MRI brain reviewed directly - 2 discrete rim enhancing lesions next to the gagnon/ white junction within the right frontal lobe with extensive surrounding edema. The differential includes metastases vs glioma. Assessment/Plan Assessment: More likely metastases as the lesions are not crossing the corpus callosum and are next to the gagnon/white junction. However, the extensive edema is suspicious for a possible glioma. Plan: 1. Obtain CT of chest, abdomen and pelvis with contrast. 2. Oncology consult. 3. If CTs are negative for a primary met consider neurosurgery consult for possible biopsy as the lesions should be relatively easily accessible for a biopsy. 4. Continue with Decadron. 5. Restart Keppra 500 bid.
--- NOTE | 2016-12-25 19:54 | ELECTROENCEPHALOGRAM REPORT ---
Electroencephalogram Report Electroencephalogram Results Date of service: 12/25/16 Attending MD: SAHARA MCMILLAN,DIMITRI Garcia Rock Splitter: Shirley EEG Number: [id number] Test Utilizes: Test Utilizes a 10-20 system, 21 lead, 18 channel digital recording. Pertinent Hx/Physical/Neuro Findings/Clin Diagnosis: 66 year old woman with new onset left hemiparesis found to have a tumor within the right frontal lobe. Inpatient Medications: Current Medications Sig/Arnoldo Start time Last Medication Dose Route Stop Time Status Admin Acetaminophen 650 MG Q6P PRN 12/23 2215 AC 12/24 PO 1150 Atorvastatin Calcium 10 MG 1700 12/24 1700 AC 12/25 PO 1713 Dexamethasone 4 MG Q6 12/24 0130 AC 12/25 PO 1713 Diazepam 2 MG ONCE ONE 12/25 1315 DC 12/25 PO 12/25 1316 1321 Diazepam 2 MG ONCE ONE 12/25 0830 DC 12/25 PO 12/25 0831 1130 Lisinopril 40 MG DAILY@12/24 2200 AC 12/24 PO 2152 Loratadine 10 MG DAILY 12/25 1000 AC 12/25 PO 1001 Sodium Chloride 2 SPRAY Q4P PRN 12/25 0830 AC 12/25 ALEXANDER 1001 Zolpidem Tartrate 10 MG AT BEDTIME PRN 12/23 2200 AC 12/24 PO 2316 Interpretation: The recording demonstrates ongoing epileptogenic sharp activity within the right frontotemporal regions. The sharps occur at a frequency of 1-2 Hertz, and demonstrate phase reversal and a field, most notable in the F8 and F4 leads. Impression: Abnormal recording indicative of ongoing subclinical partial status within the right frontal lobe. 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
[2016-12-25 22:33] VITALS: BP 136/80
--- NOTE | 2016-12-25 23:58 | CT SCAN REPORT ---
EXAMINATION: CT CHEST WITH CONTRAST CLINICAL INFORMATION: Looking for carcinoma. Brain mass present on CT. COMPARISON: Brain MRI performed earlier today. TECHNIQUE: Multidetector volumetric CT imaging of the chest, abdomen, and pelvis are obtained after the administration of 95 mL of Optiray 320 intravenous contrast without immediate adverse reactions. Axial MIP volume rendering provided. Sagittal and coronal reformatted images were obtained. FINDINGS: CHEST: No focal consolidation, pleural effusion, or pneumothorax. No pulmonary nodules. Central airways are maintained. The heart is normal in size without evidence of a pericardial effusion. There is no mediastinal, hilar, or peribronchial lymphadenopathy. Thoracic aorta is normal in caliber. No aneurysm. No axillary lymphadenopathy. No acute nor suspicious osseous abnormalities. Thoracic spondylosis. ABDOMEN/PELVIS: The liver, gallbladder, spleen, adrenal glands, and pancreas are normal. The kidneys exhibit symmetric nephrograms with no hydronephrosis and no nephrolithiasis. There is a small low-density lesion within the medial aspect of the right kidney that most likely reflects a cyst. There is mild aortoiliac atherosclerotic calcification. There are prominent mesenteric lymph nodes that are nonspecific. Sigmoid diverticulosis without evidence of acute diverticulitis. Large amount of intracolonic stool. No definite bowel mass is identified with assessment limited by the degree of stool. There is no bowel obstruction. There is no free air and there is no free fluid. Bladder is normal. Uterus is surgically absent. No adnexal lesions. No iliac chain and no pelvic lymphadenopathy. No significant soft tissue findings. No acute nor suspicious osseous abnormalities. Grade 1 degenerative anterolisthesis of L4 on L5. IMPRESSION: No suspicious masses are identified within the chest, abdomen, or pelvis. Mildly prominent mesenteric lymph nodes are nonspecific.
[2016-12-26 06:47] VITALS: BP 132/80
--- NOTE | 2016-12-26 07:09 | PN- Housestaff ---
VANITA MCMILLAN,CRICKET 12/26/16 0708: Subjective Follow-up For: Brain mass Slurred speech Subjective: Patient seen and examined. She is seen sitting upright at her bedside resting comfortably. She appears anxious and uncomfortable, but in no acute distress. She reports that other than the slurred speech and persistent facial droop she feels fine and denies any seizure activity, shaking or urinary/bowel incontinence. She is very anxious regarding her recent diagnosis of a potential brain mass and has many questions concerning this. She is also concerned about her her dog at home and wants to return home to her as soon as possible. Additionally she denies any blurred/double vision, unsteady gait, sensory defects, headache, fever, chills, chest pain, palpitations, shortness of breath, cough, nausea, vomiting, diarrhea, numbness/tingling. No overnight events reported. Review of Systems Constitutional: Reports: see HPI. Objective Last 24 Hrs of Vital Signs/I&O Vital Signs Date Time Temp Pulse Resp B/P Pulse O2 O2 Flow FiO2 Ox Delivery Rate 12/26 0647 98.4 84 20 132/80 96 Room Air 12/25 2233 98.4 79 20 136/80 96 Room Air 12/25 2146 74 132/70 12/25 1527 98.2 78 20 130/80 97 Intake & Output 12/26 1600 12/26 0800 12/26 0000 Intake Total 600 1010 Output Total Balance 600 1010 Intake, IV 10 Intake, Oral 600 1000 Patient 82.667 kg Weight Physical Exam General Appearance: Alert, Oriented X3, Cooperative, No Acute Distress Other Physical Findings: General -well-developed, well-nourished anxious woman in no acute distress HEENT - NCAT, PERRL, EOMI, anicteric sclera Cardio - S1, S2 w/o murmurs/gallops/rubs Resp - CTA bilaterally w/o wheezing/rhochi/crackles GI - soft, nontender, nondistended, bowel sounds present Neuro - Awake and alert, CN II - XII grossly intact, slurred speech with obvious left-sided facial droop and associated drooling, gait intact, strength 5/5 in all 4 extremities Extremities - no edema, pulses intact Current Medications: Current Medications Sig/Arnoldo Start time Last Medication Dose Route Stop Time Status Admin Acetaminophen 650 MG Q6P PRN 12/23 2215 AC 12/24 PO 1150 Atorvastatin Calcium 10 MG 1700 12/24 1700 AC 12/25 PO 1713 Dexamethasone 4 MG Q6 12/24 0130 AC 12/26 PO 0637 Diazepam 2 MG ONCE ONE 12/25 1315 DC 12/25 PO 12/25 1316 1321 Levetiracetam 500 MG BID 12/25 2230 AC 12/26 PO 0824 Lisinopril 40 MG DAILY@22012/24 2200 AC 12/25 PO 2146 Loratadine 10 MG DAILY 12/25 1000 AC 12/26 PO 0824 Melatonin 5 MG ONCE ONE 12/25 2215 DC PO 12/25 2216 Sodium Chloride 2 SPRAY Q4P PRN 12/25 0830 AC 12/25 ALEXANDER 2147 Zolpidem Tartrate 10 MG AT BEDTIME PRN 12/23 PO 0059 Assessment/Plan Assessment: MRI performed yesterday demonstrated 2 brain masses suggestive of a glioblastoma isolated to the left hemisphere with midline shift, metastasis cannot be excluded. CT chest/abdomen/pelvis with contrast was obtained and did not identify any obvious primary neoplasm. EEG performed yesterday demonstrated asymptomatic focal seizure for which patient was started on Keppra. Hematology/ oncology consult was placed for which a neurosurgical consult was recommended in an attempt to obtain a tissue biopsy for further recommendations regarding radiation/chemotherapy. Neurosurgical service was contacted for consultation however I was informed that the neurosurgical service does not take patient's insurance and they would not consult in this case. This was discussed with the attending physician, case management, and the medical chief technician. Neurology recommendations pending. Frontal Lobe Tumor with Vasogenic edema: Left sided facial droop and slurred speech without any other obvious neurological deficits on admission. CT Head demonstrates frontal lobe tumor with associated vasogenic edema. EEG demonstrates focal seizure disorder. MRI demonstrates 2 left hemisphere masses with midline shift. CT chest/abdomen/ pelvis with contrast did not identify any primary neoplasm. -Decadron 4mg PO Q6H -Keppra 500 mg by mouth twice a day -Atorvastatin 10mg PO Daily -Neurology Consult -Hematology/oncology consult -Neurosurgical consult for tissue biopsy Hypertension - stable, continue lisinopril Pain Plan: -Acetaminophen 650mg PO Q6H PRN PAIN 1-3 Diet - Heart Healthy Diet DVT PPx - Mechanical Code Status - FULL CODE Problem List: 1. Brain tumor Pain Ratin Pain Location: None Pain Goal: Remain pain free Pain Plan: As noted in plan Tomorrow's Labs & Rationales: Complete blood count Basic metabolic panel JAROD QUIÑONEZ MD 12/26/16 1554: Attending MD Review Statement Attending Statement Attending MD Statement: examined this patient, discuss w/resident/PA/PICKER TENDER HELPER, agreed w/resident/PA/PICKER TENDER HELPER, reviewed EMR data (avail) Attending Assessment/Plan: Continue Decadron and Keppra, follow neurology and neurosurgery recommendations, PT eval. Will discuss with neurology and case management regarding discharge planning for safe discharge.
--- NOTE | 2016-12-26 07:30 | Cons- Oncology ---
See Addendum General Information and HPI Consulting Request Date of Consult: 12/26/16 Requested By: DIMITRI SHOEMAKER MD Reason for Consult: Brain mass Source of Information: patient, old records Exam Limitations: no limitations History of Present Illness: Ms. Guevara is a 66-year-old female with HTN and right retinal artery occlusion who presents with 2 days of worsening drooling and slurred speech. She reports symptoms of drooling starting on Friday and worsening over the weekend. Her speech became slurred and went over to her neighbor on Friday. She was sent to the ED for evaluation. She denies any weakness or other neurological symptoms. She denies any changes in her vision. She feels well otherwise. In the ED, CT head was done and noted large rounded area of vasogenic edema in the right posterior frontal lobe producing local mass effect. A subtle 2 cm rounded lesion is centered within this region of edema and is concerning for neoplasm. Neurology was consulted and MRI was done yesterday. MRI demonstrated 2 rim-enhancing masses in the left frontal lobe with extensive surrounding vasogenic edema with mass effect and midline shift (1.2x2.2x1.7 and 1.6x2.6x1.4 cm). She has been started on steroid and is improving. EEG was done on 12/25 which demonstrated abnormal recording indicative of ongoing subclinical partial status within the right frontal lobe. 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 She is now on Keppra. She feels better since hospitalization. Allergies/Medications Allergies: Coded Allergies: NO KNOWN ALLERGIES (11/01/11) Home Med List: Atorvastatin Calcium 10 MG TABLET 1 TAB PO 1700 HLD (Reported) Fluticasone Furoate (Veramyst) 27.5 MCG/ACTUATION SPRAY.SUSP 2 SPRAY NASB PRN ALLERGIES (Reported) Lisinopril 40 MG TABLET 1 TAB PO AT BEDTIME HTN (Reported) Multivitamin (Multi-Day Vitamins) 1 EACH TABLET 1 TAB PO DAILY SUPPLEMENT ( Reported) Zolpidem Tartrate 10 MG TABLET 1 TAB PO PRN SLEEP (Reported) Current Medications: Current Medications Sig/Arnoldo Start time Last Medication Dose Route Stop Time Status Admin Acetaminophen 650 MG Q6P PRN 12/23 2215 AC 12/24 PO 1150 Atorvastatin Calcium 10 MG 1700 12/24 1700 AC 12/25 PO 1713 Dexamethasone 4 MG Q6 12/24 0130 AC 12/26 PO 0637 Diazepam 2 MG ONCE ONE 12/25 1315 DC 12/25 PO 12/25 1316 1321 Diazepam 2 MG ONCE ONE 12/25 0830 DC 12/25 PO 12/25 0831 1130 Levetiracetam 500 MG BID 12/25 2230 AC 12/26 PO 0059 Lisinopril 40 MG DAILY@2200 12/24 2200 AC 12/25 PO 2146 Loratadine 10 MG DAILY 12/25 1000 AC 12/25 PO 1001 Melatonin 5 MG ONCE ONE 12/25 2215 DC PO 12/25 2216 Sodium Chloride 2 SPRAY Q4P PRN 12/25 0830 AC 12/25 ALEXANDER 2147 Zolpidem Tartrate 10 MG AT BEDTIME PRN 12/23 2200 AC 12/26 PO 0059 Review of Systems Review of Systems Constitutional: Denies: chills, fever, weakness. Cardiovascular: Denies: chest pain. Respiratory: Denies: short of breath. GI: Denies: abdominal pain, diarrhea, melena, nausea, vomiting. Genitourinary: Denies: discharge, dysuria. Musculoskeletal: Denies: back pain. Neurological/Psychological: Reports: other (slurred speech, drooling). All Other Systems: Reviewed and Negative Past History Travel History Traveled to [place] past 21 day No Medical History Blood Transfusion Hx: Yes Neurological: NONE EENT: RETINAL ARTERY OCCLUSION Cardiovascular: hypertension Respiratory: NONE Gastrointestinal: NONE Hepatic: NONE Renal: NONE Musculoskeletal: NONE Psychiatric: NONE Endocrine: NONE Blood Disorders: NONE Cancer(s): NONE PERSONAL CARE AIDE/Reproductive: NONE Surgical History Surgical History: non-contributory Family History Relations & Conditions If Any: MOTHER FH: heart disease grand father FH: stomach cancer FATHER Mitral valve repair Psychosocial History Where Do You Live? Home Who Do You Live With? self Services at Home: None Smoking Status: Never Smoked ETOH Use: denies use Illicit Drug Use: denies illicit drug use Functional Ability ADLs Independent: dressing, eating, toileting, bathing. Ambulation: independent IADLs Independent: shopping, housework, finances, food prep, telephone, transportation , medication admin. Exam & Diagnostic Data Vital Signs and I&O Vital Signs Date Time Temp Pulse Resp B/P Pulse O2 O2 Flow FiO2 Ox Delivery Rate 12/26 0647 98.4 84 20 132/80 96 Room Air 12/25 2233 98.4 79 20 136/80 96 Room Air 12/25 2146 74 132/70 12/25 1527 98.2 78 20 130/80 97 Intake & Output 12/26 0800 12/26 0000 12/25 1600 Intake Total 1010 800 Output Total Balance 1010 800 Intake, IV 10 Intake, Oral 1000 800 Physical Exam General Appearance: alert, awake, comfortable Head: atraumatic, normal appearance Eyes: Bilateral: normal appearance, PERRL. Ears, Nose, Throat: normal pharynx Neck: normal inspection, supple Respiratory: normal breath sounds, chest non-tender, no respiratory distress Cardiovascular: regular rate/rhythm Gastrointestinal: normal bowel sounds, soft, non-tender, no organomegaly Back: normal inspection Extremities: normal inspection, no edema Neurologic/Psych: awake, alert, oriented x 3, normal gait, facial droop (left) Cranial Nerves: PERRL, abnormal speech (slurred), facial asymmetry (left), facial droop (left), tongue deviation to L Skin: intact, normal color Lymphatic: no anterior cervical jim Last 48 Hours of Lab Results: Laboratory Tests 12/24 0805 Chemistry Sodium (137 - 145 mmol/L) 137 Potassium (3.5 - 5.1 mmol/L) 4.6 Chloride (98 - 107 mmol/L) 102 Carbon Dioxide (22 - 30 mmol/L) 21 L Anion Gap (5 - 16) 15 BUN (7 - 17 mg/dL) 16 Creatinine (0.5 - 1.0 mg/dL) 0.8 Estimated GFR (>60 ml/min) > 60 BUN/Creatinine Ratio (7 - 25 %) 20.0 Imaging/Other Studies: MRI Brain 12/25/2016: 1. There are 2 rim-enhancing masses in the left frontal lobe with extensive surrounding vasogenic edema with mass effect and midline shift as described above. 2. Although 2 foci of abnormal signal and enhancement are demonstrated, the findings may be consistent with a primary aggressive intracranial neoplasm such as glioblastoma multiforme. Metastases cannot be excluded. Chest/Abdomen/Pelvis CT 12/25/2016: No suspicious masses are identified within the chest, abdomen, or pelvis. Mildly prominent mesenteric lymph nodes are nonspecific. Assessment/Plan Assessment: Ms. Guevara is a 66-year-old female with HTN and right retinal artery occlusion presents new brain masses. MRI Brain on 12/25/2016: demosntrated 2 rim-enhancing masses in the left frontal lobe with extensive surrounding vasogenic edema with mass effect and midline shift. CT of the chest, abdomen, and pelvis on 12/25/2016 did not demonstrate any obvious primary disease. There was moderate amount of stool and may have limit colonic evaluation. She may need to have colonoscopy work up done as an outpatient. Currently, neurological status is improved. She is on steroid and Keppra. She should have neurosurgery see her for evaluation and biopsy. Neurology is following her. Pending biopsy result, she may need chemotherapy and radiation. Clinical trial is an option. Work up may be done as an outpatient if patient is stable. Recommendations: 1. Neurosurgery consultation for evaluation and possible biopsy 2. Tissue biopsy to make diagnosis 3. Continue steroid as per neurology/neurosurgery 4. Follow up as outpatient after tissue diagnosis Problem List: 1. Brain tumor Other Findings/Comments: Please call [phone] with any questions. Consult Acknowledgment - Thank you for your consult request.
[2016-12-26 13:45] VITALS: BP 136/72
--- NOTE | 2016-12-26 18:14 | PN- Neurology ---
Subjective Subjective: Less facial droop today. Less drooling. Review of Systems: no other changes. Objective Vital Signs and I&Os Vital Signs Date Time Temp Pulse Resp B/P Pulse O2 O2 Flow FiO2 Ox Delivery Rate 12/26 1345 96.4 72 20 136/72 96 12/26 0647 98.4 84 20 132/80 96 Room Air 12/25 2233 98.4 79 20 136/80 96 Room Air 12/25 2146 74 132/70 Intake & Output 12/26 1600 12/26 0800 12/26 0000 12/25 1600 12/25 0800 12/25 0000 Intake Total 738 205 1044 800 650 400 Output Total Balance 168 691 5375 800 650 400 Intake, IV 10 Intake, Oral 754 396 4016 800 650 400 Patient 182 lb Weight Physical Exam: Alert and oriented x3. Reduced facial droop. No drooling. Otherwise strength and sensory is good. Current Medications: Current Medications Sig/Arnoldo Start time Last Medication Dose Route Stop Time Status Admin Acetaminophen 650 MG Q6P PRN 12/23 2215 AC 12/24 PO 1150 Atorvastatin Calcium 10 MG 1700 12/24 1700 AC 12/26 PO 1714 Dexamethasone 4 MG Q6 12/24 0130 AC 12/26 PO 1714 Levetiracetam 500 MG BID 12/25 2230 AC 12/26 PO 0824 Lisinopril 40 MG DAILY@12/24 2200 AC 12/25 PO 2146 Loratadine 10 MG DAILY 12/25 1000 AC 12/26 PO 0824 Melatonin 5 MG ONCE ONE 12/25 2215 DC PO 12/25 2216 Patient Medication 1 ED .STK-MED ONE 12/26 1338 DC Teaching ED 12/26 1339 Sodium Chloride 2 SPRAY Q4P PRN 12/25 0830 12/25 ALEXANDER 2147 Zolpidem Tartrate 10 MG AT BEDTIME PRN 12/23 2200 12/26 PO 0059 Results Recent Imaging Studies: CT of Abdomen, Chest and Pelvis: negative for mass. Assessment/Plan Assessment: 66 year old woman found to have a new mass in the brain suggestive of a primary glioma. The lack of any other massess across the body is consistent with this. This likely primary tumor has malignant charcteristics on MRI brain with ring enhancement and possibly some necrosis, and a lot of surrounding edema. 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 Plan: Agree with need for biopsy. C/w Keppra 500 bid. C/w current steroids.
[2016-12-26 21:40] VITALS: BP 136/86
[2016-12-27 06:41] VITALS: BP 140/90
--- NOTE | 2016-12-27 07:04 | PN- Housestaff ---
VANITA MCMILLAN,CRICKET 12/27/16 0703: Subjective Follow-up For: Brain mass Slurred speech Subjective: Patient seen and examined. She is seen sitting upright at bedside resting comfortably. She appears anxious but in no acute distress. She reports persistence of her left sided facial droop and associated drool/slurred speech without any obvious new symptoms. Otherwise she feels just but is incredibly anxious about her current medical condition. Additionally she denies any headache, fever, chills, chest pain, shortness of breath, nausea, vomiting, diarrhea, numbness/tingling. No overnight events reported. Review of Systems Constitutional: Reports: see HPI. Objective Last 24 Hrs of Vital Signs/I&O Vital Signs Date Time Temp Pulse Resp B/P Pulse O2 O2 Flow FiO2 Ox Delivery Rate 12/27 0641 97.5 69 20 140/90 97 12/26 2203 67 136/86 12/26 2140 97.7 67 20 136/86 96 Room Air 12/26 1345 96.4 72 20 136/72 96 Intake & Output 12/27 1600 12/27 0800 12/27 0000 Intake Total Output Total Balance Number 1 Bowel Movements Physical Exam General Appearance: Alert, Oriented X3, Cooperative, No Acute Distress Other Physical Findings: General - well developed, well nervous anxious woman in no acute distress HEENT - NCAT, PERRL, EOMI, anicteric sclera, left sided facial droop with drooling CVS - S1, S2 w/o m/g/r Resp - CTA bilaterally GI - soft, NT, ND, bowel sounds present Neuro - Awake and alert, oriented to person/place/time, CN II - XII grossly intact, gait normal, sensation intact, strength 5/5 in all four extremities, slurred speech Ext - distal pulses 2+, no lower extremity edema Current Medications: Current Medications Sig/Arnoldo Start time Last Medication Dose Route Stop Time Status Admin Acetaminophen 650 MG Q6P PRN 12/23 2215 12/24 PO 1150 Atorvastatin Calcium 10 MG 12/24 17012/26 PO 1714 Dexamethasone 4 MG Q6 12/24 0130 12/27 PO 0602 Levetiracetam 500 MG BID 12/25 2230 12/27 PO 0911 Lisinopril 40 MG DAILY@12/24 PO 2203 Loratadine 10 MG DAILY 12/25 1000 AC 12/27 PO 0911 Patient Medication 1 ED .STK-MED ONE 12/26 1338 DC Teaching ED 12/26 1339 Sodium Chloride 2 SPRAY Q4P PRN 12/25 0830 AC 12/25 ALEXANDER 2147 Zolpidem Tartrate 10 MG AT BEDTIME PRN 12/23 2200 AC 12/26 PO 0059 Last 24 Hrs of Lab/Valentino Results Last 24 Hrs of Labs/Mics: Laboratory Tests 12/27/16 0621: Anion Gap 13, Estimated GFR > 60, BUN/Creatinine Ratio 30.0 H, CBC w Diff NO MAN DIFF REQ, RBC 4.73, MCV 90.9, MCH 30.9, RDW 13.1, MPV 8.1, Gran % 81.4 H, Lymphocytes % 13.2 L, Monocytes % 5.0, Eosinophils % 0, Basophils % 0.4, Absolute Granulocytes 11.0 H, Absolute Lymphocytes 1.8, Absolute Monocytes 0.7 H, Absolute Eosinophils 0, Absolute Basophils 0.1, PUBS MCHC 34.0 Assessment/Plan Assessment: Neurosurgeon Dr. Sainz was contacted today in regards to patients clinical condition. Case was discussed with her and it was determined that the recent brain MRI most likley represented that of a glioblastoma and would require a tissue biopsy for confirmation and staging. Surgical options were discussed with patient and currently she would like to purse further investigation to her clinical condition, but is asking about alternative options such as palliative treatments with eventual hospice should her prognosis be ultimately poor. Further Neurology and customer care consultant recommendations and pending tissue biopsy results. Due to insurance issues and patients inability to cover financial obligations patient may need to be transfered to [place] for further care as Dr. Uribe practice does not accept her [facility] [place]. Patient is still maintained on keppra for seizure prophylaxis and decadron for associated vasogenic edema. She has not had any witnessed/reported seizure activity or new neurologic deficits. Dr. Sainz met with the patient today to discuss her surgical options and prognosis. Patient decided that she would like to have the day to determine what if any intervention she would like to pursue, but did comment that should she pursue surgical intervention she would like it to be performed over at [facility] where her insurance would cover her intervention. Frontal Lobe Tumor with Vasogenic edema: Left sided facial droop and slurred speech without any other obvious neurological deficits on admission. CT Head demonstrates right sided frontal lobe tumor with associated vasogenic edema. EEG demonstrates focal seizure disorder. MRI demonstrates 2 right hemisphere masses with midline shift. CT chest/abdomen/pelvis with contrast did not identify any primary neoplasm. -Decadron 4mg PO Q6H -Keppra 500 mg by mouth twice a day -Atorvastatin 10mg PO Daily -Neurology Consult -Hematology/oncology consult -Neurosurgical consult for tissue biopsy Hypertension - stable, continue lisinopril Pain Plan: -Acetaminophen 650mg PO Q6H PRN PAIN 1-3 Diet - Heart Healthy Diet DVT PPx - Mechanical Code Status - FULL CODE Problem List: 1. Brain tumor Pain Ratin Pain Location: None Pain Goal: Remain pain free Pain Plan: As noted in plan Tomorrow's Labs & Rationales: None JAROD QUIÑONEZ MD 12/27/16 1800: Attending MD Review Statement Attending Statement Attending MD Statement: examined this patient, discuss w/resident/PA/AIRCRAFT TIME CLERK, agreed w/resident/PA/AIRCRAFT TIME CLERK, reviewed EMR data (avail) Attending Assessment/Plan: 66F PMH right retinal artery occlusion 06/10/1999, left internal carotid artery stenosis, HTN admitted with left sided drooling and slurred speech, found to have brain mass consistent with glioblastoma multiforme. EEG showed seizure activity without active symptoms. Patient improving slightly on Decadron and Keppra. Patient had long discussion with medicine and with neurosurgery today. She was given her options regarding diagnosis and treatment vs palliative care. Patient was very overwhelmed and needs time to think. Patient also with poor memory and unpredictable behavior. She seems to have insight into her disease, is A&Ox3, and able to explain and teach back what is told to her. At this time patient has capacity to make medical decisions. Plan - Continue Decadron - Cotninue Keppra - Continue home medications - Further discussions with patient. If she wishes for biopsy and treatment, can be transferred to [facility] for further care. If patient wishes for palliative care, can be discharged home. - Request hospice evaluation in the morning for educational purposes for patient - Can be referred to Perfecto Osorio MD in [facility] for outpatient palliative care if so desired
[2016-12-27 07:54] LABS: ABSOLUTE BASOPHIL COUNT 0.1 /CUMM (0.0-0.2); ABSOLUTE EOSINOPHIL COUNT 0 /CUMM (0.0-0.7); ABSOLUTE LYMPH COUNT 1.8 /CUMM (1.2-3.4); ABSOLUTE MONOCYTE COUNT 0.7 /CUMM (0.10-0.60); BASOPHIL % 0.4 % (0.0-2.0); EOSINOPHIL % 0 % (0-5); GRANULOCYTE % 81.4 % (42.2-75.2); MEAN CORPUSCULAR HGB 30.9 PG (27.0-31.0); MEAN CORPUSCULAR VOLUME 90.9 FL (81.0-99.0); MEAN PLATELET VOLUME 8.1 FL (7.4-10.4); PLATELET COUNT 418 /CUMM (130-400); RBC DISTRIBUTION WIDTH 13.1 % (11.5-14.5); RED BLOOD CELL CT 4.73 /CUMM (4.20-5.40)
[2016-12-27 08:42] LABS: WHITE BLOOD CELL COUNT 13.5 /CUMM (4.8-10.8)
--- NOTE | 2016-12-27 09:16 | PN- Oncology ---
See Addendum Subjective Subjective: She feels well. She asked questions on what if she does not want to do anything. She states she is not suicidal. She feels down but not depressed. Review of Systems Constitutional: Denies: chills, fever, malaise, weakness. Cardiovascular: Denies: chest pain. Respiratory: Denies: cough, short of breath. Gastrointestinal: Denies: constipation. Genitourinary: Denies: dysuria. Musculoskeletal: Denies: back pain, joint pain. Skin: Denies: lesions, rash. Neurological/Psychological: Reports: anxiety, depressed. Denies: cognitive dysfunction, confusion. All Other Systems: Reviewed and Negative Objective Vital Signs and I&Os Vital Signs Date Time Temp Pulse Resp B/P Pulse O2 O2 Flow FiO2 Ox Delivery Rate 12/27 0641 97.5 69 20 140/90 97 12/26 2203 67 136/86 12/26 2140 97.7 67 20 136/86 96 Room Air 12/26 1345 96.4 72 20 136/72 96 Intake & Output 12/27 1600 12/27 0800 12/27 0000 12/26 1600 12/26 0800 12/26 0000 Intake Total 933 858 5438 Output Total Balance 070 703 9472 Intake, IV 10 Intake, Oral 530 754 9510 Number 1 Bowel Movements Patient 82.667 kg Weight Physical Exam General Appearance: alert, awake, comfortable Head: atraumatic Ears, Nose, Throat: normal pharynx Neck: supple Respiratory: normal breath sounds, chest non-tender, no respiratory distress Breasts: Breast appear nl, No breast discharge, No breast masses Cardiovascular: regular rate/rhythm Abdomen: normal bowel sounds, soft, non-tender, no organomegaly Rectal: normal exam Back: normal inspection, normal range of motion Extremities: normal inspection, no edema Neurologic/Psychiatric: awake, alert, oriented x 3, improved facial drooping Skin: intact, normal color, warm/dry Lymphatic: no adenopathy Current Medications: Current Medications Sig/Arnoldo Start time Last Medication Dose Route Stop Time Status Admin Acetaminophen 650 MG Q6P PRN 12/23 2215 AC 12/24 PO 1150 Atorvastatin Calcium 10 MG 1700 12/24 1700 AC 12/26 PO 1714 Dexamethasone 4 MG Q6 12/24 0130 AC 12/27 PO 0602 Levetiracetam 500 MG BID 12/25 2229 AC 12/26 PO 2202 Lisinopril 40 MG DAILY@12/24 2200 AC 12/26 PO 220 Loratadine 10 MG DAILY 12/25 1000 AC 12/26 PO 0824 Patient Medication 1 ED .STK-MED ONE 12/26 1338 DC Teaching ED 12/26 1339 Sodium Chloride 2 SPRAY Q4P PRN 12/25 0830 AC 12/25 ALEXANDER 2147 Zolpidem Tartrate 10 MG AT BEDTIME PRN 12/23 2199 AC 12/26 PO 0059 Results Last 24 Hours of Lab Results: Laboratory Tests 12/27 0621 Chemistry Sodium (137 - 145 mmol/L) 136 L Potassium (3.5 - 5.1 mmol/L) 4.9 Chloride (98 - 107 mmol/L) 101 Carbon Dioxide (22 - 30 mmol/L) 23 Anion Gap (5 - 16) 13 BUN (7 - 17 mg/dL) 21 H Creatinine (0.5 - 1.0 mg/dL) 0.7 Estimated GFR (>60 ml/min) > 60 BUN/Creatinine Ratio (7 - 25 %) 30.0 H Hematology CBC w Diff NO MAN DIFF REQ WBC (4.8 - 10.8 /CUMM) 13.5 H RBC (4.20 - 5.40 /CUMM) 4.73 Hgb (12.0 - 16.0 G/DL) 14.6 Hct (37 - 47 %) 43.0 MCV (81.0 - 99.0 FL) 90.9 MCH (27.0 - 31.0 PG) 30.9 RDW (11.5 - 14.5 %) 13.1 Plt Count (130 - 400 /CUMM) 418 H MPV (7.4 - 10.4 FL) 8.1 Gran % (42.2 - 75.2 %) 81.4 H Lymphocytes % (20.5 - 51.1 %) 13.2 L Monocytes % (1.7 - 9.3 %) 5.0 Eosinophils % (0 - 5 %) 0 Basophils % (0.0 - 2.0 %) 0.4 Absolute Granulocytes (1.4 - 6.5 /CUMM) 11.0 H Absolute Lymphocytes (1.2 - 3.4 /CUMM) 1.8 Absolute Monocytes (0.10 - 0.60 /CUMM) 0.7 H Absolute Eosinophils (0.0 - 0.7 /CUMM) 0 Absolute Basophils (0.0 - 0.2 /CUMM) 0.1 PUBS MCHC (33.0 - 37.0 G/DL) 34.0 Assessment/Plan Assessment/Recommendations: Ms. Guevara is a 66-year-old female with HTN and right retinal artery occlusion presents new brain masses. MRI Brain on 12/25/2016: demosntrated 2 rim-enhancing masses in the left frontal lobe with extensive surrounding vasogenic edema with mass effect and midline shift. CT of the chest, abdomen, and pelvis on 12/25/2016 did not demonstrate any obvious primary disease. There was moderate amount of stool and may have limit colonic evaluation. She may need to have colonoscopy work up done as an outpatient. She has no skin lesion noted on examination. Breast exam was normal. Neurological status continues to improve. She is on steroid and Keppra. She should have neurosurgery see her for evaluation and biopsy. Neurology is following her. Pending biopsy result, she may need surgery, chemotherapy, and radiation. Clinical trial is an option. Recommendations: 1. Neurosurgery consultation for evaluation and possible biopsy 2. Tissue biopsy to make diagnosis 3. Continue steroid as per neurology/neurosurgery 4. Follow up as outpatient after tissue diagnosis Please call [phone] with any questions. Problem List: 1. Brain tumor
[2016-12-27 14:26] VITALS: BP 130/70
--- NOTE | 2016-12-27 14:30 | Discharge Summary ---
Visit Information Visit Dates Admission Date: 12/23/16 Discharge Date: 12/29/2016 Hospital Course Course Attending Physician: JAROD QUIÑONEZ MD Primary Care Physician: DONNY SANCHEZ MD Consulting Request: 1 Consulting Specialty: Neurology Consulting Request: 2 Consulting Specialty: Hematology/Oncology Consulting Request: 3 Consulting Specialty: Neurosurgery Hospital Course: 66-year-old woman with past medical history of ocular migraine, right retinal artery occlusion, left internal carotid artery stenosis, and hypertension seen for evaluation of left-sided facial droop, drooling, and slurred speech. CT scan obtained in the ED demonstrated a large rounded area of vasogenic edema in the right posterior mental lobe with local mass effect. Physical examination demonstrated a elderly woman with an obvious left-sided facial droop and associated drooling and slurred speech and an otherwise normal neurologic examination. Patient was started on Decadron admitted to the general medicine floor for further evaluation. Neurology consultation was placed and an MRI with and without contrast was obtained. MRI demonstrated a right hemisphere mass suggestive of a glioblastoma. EEG obtained demonstrated a focal seizure activity and patient was started on Keppra. CT chest/abdomen/pelvis with contrast was obtained to rule out any potential primary neoplasm that may have metastasized to the brain for which it did not reveal any obvious source. Hematology/oncology consult was placed for which they recommended obtaining a tissue biopsy for further treatment recommendations. Neurology consultation agreed with neurosurgical evaluation. Neurosurgeon Dr. Sainz was consulted regarding these findings. She commented that due to the character and appearance of the brain mass it was more than likely that this represented that of a glioblastoma. Neurosurgical options were discussed with the patient in a tissue biopsy was recommended. Transfer options to under the service of Dr. Sainz were discussed however due to patient's insurance and potential financial obligations of these services about what her insurance would cover patient decided to be transferred to [facility] where her insurance would cover the majority if not all of her health care costs. Allergies: Coded Allergies: NO KNOWN ALLERGIES (11/01/11) Significant Procedures: SERVICE DATE: 12/23/16-163 EXAM TYPE: CAT - CT HEAD WO IV CONTRAST IMPRESSION: Large rounded area of vasogenic edema in the right posterior frontal lobe producing local mass effect. A subtle 2 cm rounded lesion is centered within this region of edema and is concerning for neoplasm. Infection is also on the differential. Further evaluation with MRI with and without contrast is advised. No superimposed infarctions are identified, though the degree of edema superiorly does cause loss of the normal cortical holcomb matter density, limiting sensitivity. SERVICE DATE: 12/25/16- EXAM TYPE: CAT - CT ABD & PELVIS W IV CONTRAST; CT CHEST W IV CONTRAST IMPRESSION: No suspicious masses are identified within the chest, abdomen, or pelvis. Mildly prominent mesenteric lymph nodes are nonspecific. SERVICE DATE: 12/25/16-0800 EXAM TYPE: MRI - MRI-HEAD W & W/O LEA IMPRESSION: 1. There are 2 rim-enhancing masses in the left frontal lobe with extensive surrounding vasogenic edema with mass effect and midline shift as described above. 2. Although 2 foci of abnormal signal and enhancement are demonstrated, the findings may be consistent with a primary aggressive intracranial neoplasm such as glioblastoma multiforme. Metastases cannot be excluded. Electroencephalogram Results Date of service: 12/25/16 Impression: Abnormal recording indicative of ongoing subclinical partial status within the right frontal lobe. 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 Disposition Summary Disposition Principal Diagnosis: Brain mass with vasogenic edema, probable glioblastoma Additional Diagnosis: None Discharge Disposition: other general hospital Discharge Instructions General Discharge Information Code Status: Full Code Patient's Diet: Heart healthy diet Patient's Activity: Full activity Follow-Up Instructions/Appts: Follow-up with your neurologist and oncologist after discharge for further treatment recommendations. Continue to take Decadron and Keppra per your neurologist recommendations. Follow-up with your neurosurgeon for treatment and evaluation of your medical condition. Medications at Discharge Discharge Medications: Stop taking the following medications: Zolpidem Tartrate (Zolpidem Tartrate) 10 MG TABLET ORAL as needed for SLEEP Qty = 30 Continue taking these medications: Lisinopril (Lisinopril) 40 MG TABLET 1 Tablet ORAL AT BEDTIME Qty = 90 Comments: Last Taken: 12/28/16 Time: 10PM Atorvastatin Calcium (Atorvastatin Calcium) 10 MG TABLET 1 Tablet ORAL 5 PM Qty = 90 Comments: Last Taken: 12/28/16 Time: 5PM Fluticasone Furoate (Veramyst) 27.5 MCG/ACTUATION SPRAY.SUSP 2 [place] Both sides of nose as needed for ALLERGIES Qty = 10 Comments: NOT GIVEN WHILE IN HOSPITAL Multivitamin (Multi-Day Vitamins) 1 EACH TABLET 1 Tablet ORAL DAILY Comments: NOT GIVEN Start taking the following new medications: Dexamethasone (Dexamethasone) 4 MG TABLET 4 Milligram ORAL EVERY SIX HOURS Qty = 120 No Refills Comments: Last Taken: 12/29/16 Time: 11AM Levetiracetam (Keppra) 500 MG TABLET 500 Milligram ORAL TWICE DAILY Qty = 60 No Refills Comments: Last Taken: 12/29/16 Time: 11AM Alprazolam (Xanax) 0.25 MG TABLET 1 Tablet ORAL THREE TIMES A DAY NEEDED Days = 30 No Refills Comments: Last Taken: 12/28/16 Time: 10PM Copies To: JENNIFER MCMILLAN,SYLVIA; ALEX MCMILLAN,DAMARIS Paz; ANA MARIA MCMILLAN,KATHE RODRIGUEZ MD,SYLVIA; ALEX MCMILLAN,DAMARIS Paz; ANA MARIA MCMILLAN,KATHE
--- NOTE | 2016-12-27 14:46 | Patient Discharge Instructions ---
Discharge Instructions General Discharge Information Special Instructions: Follow-up with your primary care provider, neurologist, oncologist, and neurosurgeon after discharge. Take Juliann as directed. Acute Coronary Syndrome Inclusion Criteria At DC or during hospital stay patient has or had the following: ACS DIAGNOSIS No Discharge Core Measures Meds if any: Prescribed or Continued at Discharge Meds if any: NOT Prescribed or Continued at Discharge Congestive Heart Failure Inclusion Criteria At DC or during hospital stay patient has or had the following: CHF DIAGNOSIS No Discharge Core Measures Meds if any: Prescribed or Continued at Discharge Meds if any: NOT Prescribed or Continued at Discharge Cerebrovascular accident Inclusion Criteria At DC or during hospital stay patient has or had the following: CVA/TIA Diagnosis No Discharge Core Measures Meds if any: Prescribed or Continued at Discharge Meds if any: NOT Prescribed or Continued at Discharge Venous thromboembolism Inclusion Criteria VTE Diagnosis No VTE Type NONE VTE Confirmed by (Test) NONE Discharge Core Measures - Per Current guidelines, there needs to be overlap - treatment for the first 5 days of Warfarin therapy. - If discharged on Warfarin prior to 5 days of - overlap therapy, the patient will need to be - assessed for post discharge needs including - *Post discharge parental anticoagulation - *Warfarin and/or parental anticoagulation education - *Follow up date to check INR post discharge At least 5 days overlap therapy as Inpatient No Meds if any: Prescribed or Continued at Discharge Note: Overlap Therapy is Warfarin and Anticoagulant Meds if any: NOT Prescribed or Continued at Discharge
--- NOTE | 2016-12-27 14:54 | NUR ---
SPEECH THERAPY: ST ATTEMPTED TO SEE PT FOR COMPLETION OF COGNITIVE EVALUATION. PT AT BEDSIDE W/ FRIEND. ST BEGAN TO ADMINSTER SUBTESTS, HOWEVER, PT STATING THAT TASKS WERE 'TOO HARD' AND TO RETURN AT ANOTHER TIME. PT DISCUSSED PROGNOSIS AFTER BEING SEEN BY NEUROSURGEON; ST PROVIDED EMOTIONAL SUPPORT. ST CONTINUE TO FOLLOW CLINICALLY INDICATED. D/W .
[2016-12-28 06:19] VITALS: BP 136/74
--- NOTE | 2016-12-28 09:16 | PN- Housestaff ---
VANITA MCMILLAN,CRICKET 12/28/16 0916: Subjective Follow-up For: Brain mass Slurred speech Subjective: Patient seen and examined. She is seen sitting upright in bed using her cell phone. She appears to be in no acute distress. She reports feeling well today, but admits that she is still concerned about her prognosis. Her anxiety is more controlled and she feels ready to make a decision about her care. She is requesting to be transferred to [place] for further neurosurgical evaluation. Additionally she denies any headache, fever, chills, chest pain, palpitations, shortness of breath, cough, nausea, vomiting, diarrhea, numbness/tingling, weakness. No overnight events reported. Review of Systems Constitutional: Reports: see HPI. Objective Last 24 Hrs of Vital Signs/I&O Vital Signs Date Time Temp Pulse Resp B/P Pulse O2 O2 Flow FiO2 Ox Delivery Rate 12/28 0619 97.9 81 18 136/74 96 Room Air 12/27 2200 97.5 18 95 Room Air 12/27 2118 75 140/88 12/27 1426 97.4 70 20 130/70 95 Room Air Intake & Output 12/28 1600 12/28 0800 12/28 0000 Intake Total 300 700 Output Total Balance 300 700 Intake, Oral 300 700 Physical Exam General Appearance: Alert, Oriented X3, Cooperative, No Acute Distress Other Physical Findings: General - well developed, well anxious woman in no acute distress HEENT - NCAT, PERRL, EOMI, anicteric sclera, left sided facial droop with drooling CVS - S1, S2 w/o m/g/r Resp - CTA bilaterally GI - soft, NT, ND, bowel sounds present Neuro - Awake and alert, oriented to person/place/time, CN II - XII grossly intact, gait normal, sensation intact, strength 5/5 in all four extremities, slurred speech Ext - distal pulses 2+, no lower extremity edema Current Medications: Current Medications Sig/Arnoldo Start time Last Medication Dose Route Stop Time Status Admin Acetaminophen 650 MG Q6P PRN 12/23 2215 AC 12/24 PO 1150 Alprazolam 0.5 MG ONCE ONE 12/27 2244 DC 12/27 PO 12/27 224 2337 Atorvastatin Calcium 10 MG 1700 12/24 1700 AC 12/27 PO 1654 Dexamethasone 4 MG Q6 12/24 0130 AC 12/28 PO 0647 Levetiracetam 500 MG BID 12/25 2230 AC 12/28 PO 0817 Lisinopril 40 MG DAILY@2200 12/24 2200 AC 12/27 PO 2118 Loratadine 10 MG DAILY 12/25 1000 AC 12/28 PO 0817 Melatonin 5 MG ONCE ONE 12/27 2245 DC PO 12/27 2246 Patient Medication 1 ED .STK-MED ONE 12/27 1420 DC Teaching ED 12/27 1421 Sodium Chloride 2 SPRAY Q4P PRN 12/25 0830 AC 12/25 ALEXANDER 2147 Zolpidem Tartrate 10 MG AT BEDTIME PRN 12/23 2200 AC 12/26 PO 0059 Assessment/Plan Assessment: Patient has discussed her affairs with her friend whom now is her power of prison librarian and has decided that she would like to pursue further investigation of her newly diagnosed glioblastoma. Attempts will be made to transfer her to [place] today for further evaluation. She still maintained on Keppra and Decadron. Otherwise she does admit that she feels more or less the same as yesterday and denies any new neurologic symptoms or weakness. She is to follow-up as an outpatient with Dr. Jones and Dr. Christianson for further evaluation and treatment of the glioblastoma after neurosurgical evaluation. Frontal Lobe Tumor with Vasogenic edema: Left sided facial droop and slurred speech without any other obvious neurological deficits on admission. CT Head demonstrates frontal lobe tumor with associated vasogenic edema. EEG demonstrates focal seizure disorder. MRI demonstrates 2 left hemisphere masses with midline shift. CT chest/abdomen/ pelvis with contrast did not identify any primary neoplasm. -Decadron 4mg PO Q6H -Keppra 500 mg by mouth twice a day -Atorvastatin 10mg PO Daily -Neurology Consult -Hematology/oncology consult -Neurosurgical consult for tissue biopsy Hypertension - stable, continue lisinopril Pain Plan: -Acetaminophen 650mg PO Q6H PRN PAIN 1-3 Diet - Heart Healthy Diet DVT PPx - Mechanical Code Status - FULL CODE Problem List: 1. Brain tumor Pain Ratin Pain Location: None Pain Goal: Remain pain free Pain Plan: As noted in plan Tomorrow's Labs & Rationales: None Consulting Request: Consulting Specialty: Neurosurgery ASHLEY MCMILLAN,MAJOR 12/28/16 1152: Attending MD Review Statement Attending Statement Attending MD Statement: examined this patient, discuss w/resident/PA/PIPELAYER, agreed w/resident/PA/PIPELAYER, reviewed EMR data (avail), discussed with nursing, reviewed images Attending Assessment/Plan: 66-year-old female with past medical history significant for hypertension, right retinal artery occlusion, left internal carotid artery stenosis, is being admitted to the floor with a left-sided drooling and slurred speech and was found to have a brain mass consistent with glioblastoma multiforme. Neurology and neurosurgery on board. Patient currently on Decadron and Keppra for control of asymptomatic seizures that were shown on EEG. the neurosurgeon had a lengthy discussion with the patient about her disease, prognosis and the different options available for her treatment. Next step was to confirm the disease with biopsy which is unfortunately unable to be done by Dr. Sainz because of patient's insurance. I will try to reach out to the attending at [facility] for possible transfer if they agree to take over the patient for biopsy and further management. Spoken to the patient in detail and she agrees with the plan. For now we will follow the recommendations of the neurology and continue the rest of her home medications.
[2016-12-28 14:00] VITALS: BP 138/84
[2016-12-28 22:44] VITALS: BP 130/80
[2016-12-29 07:19] VITALS: BP 122/70
--- NOTE | 2016-12-29 08:13 | PN- Housestaff ---
DEBBI WALLACE 12/29/16 0812: Subjective Follow-up For: - brain mass Subjective: The patient is comfortable this morning. Did not have any complaints. Vitals remained stable overnight. She was to be transferred to [place], for further management. Arrangements have been made this a.m. for transfer. Consent forms and W [address] Linda Tillman would be accepting the physician at [facility]. Review of Systems Constitutional: Reports: see HPI. Objective Last 24 Hrs of Vital Signs/I&O Vital Signs Date Time Temp Pulse Resp B/P Pulse O2 O2 Flow FiO2 Ox Delivery Rate 12/29 0719 97.8 58 18 122/70 97 Room Air 12/28 2244 97.9 71 19 130/80 95 Room Air 12/28 2155 65 130/70 12/28 1400 97.6 67 18 138/84 94 Room Air Intake & Output 12/29 1600 12/29 0800 12/29 0000 Intake Total 340 270 Output Total Balance 340 270 Intake, IV 20 Intake, Oral 340 250 Number 0 Bowel Movements Physical Exam General Appearance: No Acute Distress Other Physical Findings: General Exam: AAOx3, No acute distress, Skin: No rashes, no breakdown HEENT: PERRLA, EOMI Neck: Supple, No JVD No cervical lymphadenopathy CVS: Reg Rate, Normal S1,S2, No MGR Resp: Normal air entry, no ronchi/rales Abdomen: Soft, No tenderness, Normal Bowel Sounds Neuro: Normal Speech, Strength 5/5 b/l x 4 extremities, Sensation intact, CN III -XII NL, Reflexes 2+, left sided droop Extremities: No cyanosis, pedal edema Current Medications: Current Medications Sig/Arnoldo Start time Last Medication Dose Route Stop Time Status Admin Acetaminophen 650 MG Q6P PRN 12/23 2215 AC 12/24 PO 1150 Alprazolam 0.5 MG ONCE ONE 12/28 2315 DC 12/29 PO 12/28 2316 0026 Atorvastatin Calcium 10 MG 1700 12/24 1700 AC 12/28 PO 1639 Dexamethasone 4 MG Q6 12/24 0130 AC 12/29 PO 0603 Levetiracetam 500 MG BID 12/25 2230 AC 12/28 PO 2155 Lisinopril 40 MG DAILY@22012/24 2200 AC 12/28 PO 2155 Loratadine 10 MG DAILY 12/25 1000 AC 12/28 PO 0817 Sodium Chloride 2 SPRAY Q4P PRN 12/25 0830 AC 12/25 ALEXANDER 2147 Zolpidem Tartrate 10 MG AT BEDTIME PRN 12/23 2200 AC 12/26 PO 0059 Assessment/Plan Assessment: She is an older lady who was recently diagnosed with new brain mass suspected glioblastoma multiforme. And to be transferred to neurosurgery for further management including biopsy and treatment. Frontal Lobe Tumor with Vasogenic edema: Left sided facial droop and slurred speech without any other obvious neurological deficits on admission. CT Head demonstrates right sided frontal lobe tumor with associated vasogenic edema. EEG demonstrates focal seizure disorder. MRI demonstrates 2 right hemisphere masses with midline shift. CT chest/abdomen/pelvis with contrast did not identify any primary neoplasm. -Decadron 4mg PO Q6H -Keppra 500 mg by mouth twice a day -Atorvastatin 10mg PO Daily -Neurology Consult -Hematology/oncology consult -Neurosurgical consult for tissue biopsy, to be done at [facility]. Hypertension - stable, continue lisinopril Pain Plan: -Acetaminophen 650mg PO Q6H PRN PAIN 1-3 Diet - Heart Healthy Diet DVT PPx - Mechanical Code Status - FULL CODE Problem List: 1. Facial droop 2. Brain tumor Pain Ratin Pain Location: none Pain Goal: Pain 4 or less Pain Plan: tylenol prn Tomorrow's Labs & Rationales: no labs necessary. Pt to be transfered to [place]. Consulting Request: Consulting Specialty: Neurosurgery ASHLEY MCMILLAN,[facility] 12/29/16 1128: Attending MD Review Statement Attending Statement Attending MD Statement: examined this patient, discuss w/resident/PA/ORTHO/PROSTHETIC AIDE, agreed w/resident/PA/ORTHO/PROSTHETIC AIDE, reviewed EMR data (avail), discussed with nursing, discussed with case mgmt, reviewed images Attending Assessment/Plan: 66-year-old female with past medical history significant for hypertension, right retinal artery occlusion, left internal carotid artery stenosis, is being admitted to the floor with a left-sided drooling and slurred speech and was found to have a brain mass consistent with glioblastoma multiforme. Neurology and neurosurgery on board. Patient currently on Decadron and Keppra for control of asymptomatic seizures that were shown on EEG. the neurosurgeon had a lengthy discussion with the patient about her disease, prognosis and the different options available for her treatment. Next step was to confirm the disease with biopsy which is unfortunately unable to be done by Dr. Sainz because of patient's insurance. I have called in through the [facility] to [facility] and spoke to the neurosurgeon Dr. Brock has accepted the patient. Spoken to the patient in detail and she initially was reluctant to go today but it was explained that it should not be delayed further. Patient agreed and will be transferring out any time today. We have added Xanax 0.25 mg 3 times a day as needed to her current regimen along with Decadron and Keppra.
[2016-12-29] MEDS ORDERED: XANAX0.25 M1 PO (10:46)
[2016-12-29] MEDS ORDERED: KEPPRA500 M1 PO (10:54)
[2016-12-29] MEDS ORDERED: DEXAMETHASONE4 M1 PO (10:54)
[2016-12-29 10:55] VITALS: BP 122/70
--- NOTE | 2016-12-29 17:16 | NUR ---
REPORT CALLED TO IFRAH THE NURSE AT [facility] AT 1630. [facility] ALSO CALLED. PATIENT WAS PICKED UP AT 1707. IV HEPLOCK IN PLACE. PATIENT WENT TO [facility] ROOM # [id number].
== END 2016-12-29 17:07 | disposition short-term general hospital (02) | DRG 70 ==
LOC: ENRESERVDT → ENRESERVTM → ERH 15:51 → 2NA 18:57 → ERHI 18:57 → 2NA 20:46
PROVIDERS: Emergency Medicine; Internal Medicine Interventional Cardiology; ADMIT Internal Medicine
DX: G93.9 Disorder of brain, unspecified (principal); G93.6 Cerebral edema; C71.1 Malignant neoplasm of frontal lobe; I65.22 Occlusion and stenosis of left carotid artery; I10 Essential (primary) hypertension; E78.5 Hyperlipidemia, unspecified
CPT/HCPCS: 2NAP; 70552; 70553; 74177; 82436; 93005; 93010; 95816; 96374; 97165-GO; A9579; J1165; J7040

== ENCOUNTER 2017-03-29 16:29 | Emergency (ER) | payer OTHER ==
[~2017-03-29] VITALS: Ht 157.5 cm; Wt 83.9 kg
[~2017-03-29 16:29] MED LIST: ATORVASTATIN CA10 M1 PO; DEXAMETHASONE4 M1 PO; KEPPRA500 M1 PO; LISINOPRIL40 M1 PO; MULTI-DAY VITA1 EACH PO; VERAMYST10 GM NASB; XANAX0.25 M1 PO; ZOLPIDEM TARTRA10 M1 PO
--- NOTE | 2017-03-29 17:03 | ED NEURO DEFICIT/STROKE ---
History of Present Illness General Chief Complaint: General Adult Stated Complaint: CAVAZOS,LEFT SIDED FACIAL NUMBNESS Source: patient, old records Exam Limitations: no limitations Vital Signs & Intake/Output Vital Signs & Intake/Output Vital Signs Date Time Temp Pulse Resp B/P B/P Pulse O2 O2 Flow FiO2 Mean Ox Delivery Rate 03/29 1943 99.2 82 16 133/62 95 Room Air 03/29 1844 64 18 131/58 95 Room Air 03/29 1742 Room Air 03/29 1640 98.1 102 15 114/74 97 Room Air Room Air ED Intake and Output 03/30 0000 03/29 1200 Intake Total 0 Output Total Balance 0 Intake, Oral 0 Patient 185 lb Weight Weight Reported by Patient Measurement Method Allergies Coded Allergies: NO KNOWN ALLERGIES (11/01/11) Reconcile Medications Atorvastatin Calcium 10 MG TABLET 1 TAB PO 1700 HLD (Reported) Dexamethasone 4 MG TABLET 4 TAB PO BID SWELLING IN BRAIN (Reported) Dexamethasone 2 MG TABLET 5 TAB PO TID INTRACRANIAL LESION Escitalopram Oxalate 20 MG TABLET 1 TAB PO QAM MENTAL HEALTH (Reported) Levetiracetam (Keppra) 750 MG TABLET 1 TAB PO BID SEIZURE PREVENTION ( Reported) Levetiracetam (Keppra) 500 MG TABLET 2 TAB PO BID SEIZURE PPX Lisinopril 40 MG TABLET 1 TAB PO AT BEDTIME HTN (Reported) Lorazepam 0.5 MG TABLET 1 TAB PO AD PRN ANXIETY (Reported) Ramelteon (Rozerem) 8 MG TABLET 1 TAB PO QPM SLEEP (Reported) Triage Note: PT TO ED FOR NUMBNESS/TINGLING TO LEFT UPPER LIP/CHEEK AREA THAT STARTED FRIDAY AT NOON, THEN AGAIN AT MIDNIGHT. 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 PT'S NEUROS INTACT, NO FACIAL DROOP NOTED, DENIES VISION CHANGES. DOES REPORTS +DISCOMFORT TO R SIDE OF HEAD. Triage Nurses Notes Reviewed? yes Onset: Abrupt Duration: day(s): (13), intermittent Timing: recent history Severity: mild New Weakness: none Altered Sensations: left facial Vision Problem? No Glaucoma? No Baseline: alert, oriented x 3 Associated Symptoms: denies HPI: 67 year old female with past medical history of gleoblastoma requiring radiation and surgical removal in 2016 at [place], ocular migraine, right retinal artery occlusion, left internal carotid artery stenosis, and hypertension presents to the ER for evaluation complaining of left sided "gum" numbness that first beganon march 16. she states symptoms have been intermittent in nature since. she reports she has had 2 episodes since 12am, lasting for approximately an hour before resolving on their own. the pt was started on decadron by dr rodriguez (neurologist) when thte symptoms first began and is still currently taking. no recent headache, vision changes, facial droop, slurred speech. radha states the pain on the right side of her head she has had in the past and is because she states she fell asleep over her incision. no recen fever, chills, neck or back pain. no vision loss, she denies any symptoms at this time. dr witt is her oncologist, neurosurgeon is out of [place]- dr brittany langley. no chest pain, weaknesss, numbness or tingling to her extremities. (IRON MARINA) Past History Travel History Traveled to [place] past 21 day No Medical History Any Pertinent Medical History? 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 No (IRON MARINA) Review of Systems Review of Systems Constitutional: Reports: see HPI. All Other Systems: Reviewed and Negative Comments Review of systems: See HPI, All other systems negative. Constitutional, no chills no fever, no malaise HEENT: No visual changes no sore throat no congestion, Cardiovascular: No chest pain , no palpitation Skin: no rashes, no change in skin Respiratory: No dyspnea no cough no sputum GI: No nausea no vomiting, no diarrhea : No dysuria Muscle skeletal: No joint pain, no joint swelling, no back pain, no neck pain, Neurologic: No numbness no confusion, no headache Psych: No stress Heme/endocrine: No bruising Immunology: No lymphadenopathy (IRON MARINA) Physical Exam Physical Exam General Appearance: well developed/nourished, no apparent distress, alert, awake Cranial Nerves: normal hearing, normal speech, PERRL Comments: Well-developed well-nourished person in no acute distress HEENT: Normal EENT exam; PERRL, EOMI, no nystagmus. HEAD is atraumatic. moist mucous membranes. Neck: Supple, normal range of motion without pain or tenderness Back: Nontender, Full range of motion Cardiovascular: Regular rate and rhythms no murmurs rubs Respiratory: Chest nontender.There were no bony deformities, no asymmetry. No respiratory distress. Patient speaking in full complete sentences. Breath sounds clear to auscultation bilaterally: NO W/R/R Abdomen: Soft, nontender nondistended Extremity: No edema, full range of motion of extremities, normal and equal pulses bilaterally, 5 out of 5 strength noted to bilateral upper and lower extremities Neuro: Alert oriented x3, motor sensory normal, cranial nerves II through XII grossly intact. There were no obvious focal neurologic abnormalities. Skin: No appreciable rash on exposed skin, skin is warm and dry. Psych: Mood and affect is normal, memory and judgment is normal. Core Measures CVA/TIA Diagnosis: No Severe Sepsis Present: No Septic Shock Present: No (IRON MARINA) Progress Differential Diagnosis: Koch's Palsy, drug intoxication, electrolyte imbalance, encephalitis, intracranial Hem., intracranial mass/tumor, meningitis, seizure disorder, stroke, subarachnoid Hem. Plan of Care: Orders Procedure Date/time Status CBC WITHOUT DIFFERENTIAL 03/29 1702 Complete BASIC METABOLIC PANEL 03/29 1702 Complete Laboratory Tests 03/29/17 1730: Anion Gap 13, Estimated GFR > 60, BUN/Creatinine Ratio 47.5 H, Glucose 144 H, Calcium 8.9, CBC w Diff NO MAN DIFF REQ, RBC 4.78, MCV 91.6, MCH 30.2, RDW 14.2, MPV 7.7, Gran % 89.5 H, Lymphocytes % 6.9 L, Monocytes % 3.5, Eosinophils % 0, Basophils % 0.1, Absolute Granulocytes 9.7 H, Absolute Lymphocytes 0.8 L, Absolute Monocytes 0.4, Absolute Eosinophils 0, Absolute Basophils 0, PUBS MCHC 33.0 labs ordered, case d/w dr storey on Repeat evaluation patient is again resting in no acute distress denies any symptoms at this time 03/29/2017 7:21:48 PM call placed the patient's neurosurgeon I discussed with apparently upper CAT scan findings lab results. Case was discussed with Dr. Storey again who agrees with plan 03/29/2017 7:39:43 PM discussed the patient's NEUROsurgeon Dr. langley who advised to have pt f/u with her office on friday, pt is already sccheduled for outptmrion fri, to nicrease keppra 1000mg bid, decadron 10mg tid, and advised myself to inform pt if sx persist or worsen to go straight to the [place] ER Discussed the patient at length my discussion with her surgeon she feels comfortable planning and she is resting in no apparent distress prescriptions were sent to her pharmacy answered all her questions she feels comfortable with this plan (BRINDA MARTIN,IRON) Diagnostic Imaging: Viewed by Me: CT Scan. Discussed w/RAD: CT Scan. Radiology Impression: PATIENT: RADHA TYSON PRESENT AGE: 67 PATIENT ACCOUNT NO: [id number] : 48 LOCATION: [facility] ORDERING PHYSICIAN: IRON MARTIN SERVICE DATE: 03/29/17 EXAM TYPE: CAT - CT HEAD W&WO IV CONTRAST EXAMINATION: CT HEAD WITHOUT AND WITH CONTRAST CLINICAL INFORMATION: Left-sided facial numbness for 3 days. Evaluate for a tumor. Glioblastoma resection in 01/20/2017. COMPARISON: CT head dated 2016 and MR head dated 12/25/2016. TECHNIQUE: Contiguous axial imaging was performed from the skull base to vertex before and after the administration of 94 mL of Optiray 320 intravenous contrast. DLP: 1344.51 mGy-cm. FINDINGS: There is an irregular, lobulated area of hypodensity within the right frontal lobe measuring approximately 3.6 x 2.7 cm, in the region of the previously identified intraparenchymal lesions. There is peripheral enhancement on the postcontrast images. There is mild hypoattenuation of the adjacent parenchyma, which could represent minimal edema. There is no significant mass effect or midline shift. These findings could represent postsurgical change, however, recurrent tumor cannot be entirely excluded. MR evaluation could be considered to help further characterize if there are no contraindications. No new enhancing intraparenchymal lesion is identified. There is no evidence of acute intracranial hemorrhage or territorial infarction. No extra-axial fluid collections are identified. The ventricles are normal in size. A craniotomy is noted within the right temporal bone with associated postsurgical changes. The mastoid air cells and visualized portions of the paranasal sinuses are well aerated. IMPRESSION: Hypodensity with associated peripheral enhancement and mild adjacent parenchymal edema in the region of the previously seen intraparenchymal masses. No significant mass effect or midline shift. These findings could represent post surgical change, however, recurrent tumor cannot be entirely excluded. MR evaluation could be considered to help further characterize if there are no contra indications. DICTATED BY: DILMA DIAS MD DATE/TIME DICTATED:03/29/171835 LEGAL AIDE:JULEE DATE/TIME TRANSCRIBED:1835 CONFIDENTIAL, DO NOT COPY WITHOUT APPROPRIATE AUTHORIZATION. < Electronically signed in Other Vendor System> SIGNED BY: DILMA DIAS MD 03/29/171853 Initial ED EKG: none (IRON MARINA) Departure Departure Time of Disposition: 1933 Disposition: HOME OR SELF CARE Condition: Stable Clinical Impression Primary Impression: Facial paresthesia Referrals: DONNY SANCHEZ MD (PCP/Family) Additional Instructions: follow up with your neurosurgeon on friday- as per dr ashford increase yourkeppra to 1000mg once daily and decardon 10mg tid. if your symptoms worsen go to the [facility]. these prescriptions [facility] sent to [facility] Departure Forms: Customer Survey General Discharge Information Prescriptions: Current Visit Scripts Dexamethasone 5 TAB PO TID #45 TAB Levetiracetam (Keppra) 2 TAB PO BID #12 TAB (IRON MARINA) PA/SHREDDED FILLER MACHINE WRAPPER LAYER Co-Sign Statement Statement: ED Attending supervision documentation- [] I saw and evaluated the patient. I have also reviewed all the pertinent lab results and diagnostic results. I agree with the findings and the plan of care as documented in the PA's/SHREDDED FILLER MACHINE WRAPPER LAYER's documentation. [X] I have reviewed the ED Record and agree with the PA's/SHREDDED FILLER MACHINE WRAPPER LAYER's documentation. [] Additions or exceptions (if any) to the PAs/SHREDDED FILLER MACHINE WRAPPER LAYER's note and plan are summarized below: [] (DEANNA MCMILLAN,COTY)
[2017-03-29 17:38] LABS: ABSOLUTE BASOPHIL COUNT 0 /CUMM (0.0-0.2); ABSOLUTE EOSINOPHIL COUNT 0 /CUMM (0.0-0.7); ABSOLUTE GRANULOCYTE CT 9.7 /CUMM (1.4-6.5); ABSOLUTE LYMPH COUNT 0.8 /CUMM (1.2-3.4); ABSOLUTE MONOCYTE COUNT 0.4 /CUMM (0.10-0.60); BASOPHIL % 0.1 % (0.0-2.0); EOSINOPHIL % 0 % (0-5); GRANULOCYTE % 89.5 % (42.2-75.2); HEMATOCRIT 43.8 % (37-47); MEAN CORPUSCULAR HGB 30.2 PG (27.0-31.0); MEAN CORPUSCULAR VOLUME 91.6 FL (81.0-99.0); MEAN PLATELET VOLUME 7.7 FL (7.4-10.4); PLATELET COUNT 407 /CUMM (130-400); RBC DISTRIBUTION WIDTH 14.2 % (11.5-14.5); RED BLOOD CELL CT 4.78 /CUMM (4.20-5.40); WHITE BLOOD CELL COUNT 10.9 /CUMM (4.8-10.8)
[2017-03-29] MEDS ORDERED: DEXAMETHASONE4 M1 PO (17:46)
[2017-03-29] MEDS ORDERED: LORAZEPAM0.5 M1 PO (17:46)
[2017-03-29] MEDS ORDERED: ESCITALOPRAM OX20 MG PO (17:47)
[2017-03-29] MEDS ORDERED: ROZEREM8 M1 PO (17:47)
[2017-03-29] MEDS ORDERED: KEPPRA750 M1 PO (17:47)
--- NOTE | 2017-03-29 18:54 | CT SCAN REPORT ---
EXAMINATION: CT HEAD WITHOUT AND WITH CONTRAST CLINICAL INFORMATION: Left-sided facial numbness for 3 days. Evaluate for a tumor. Glioblastoma resection in 01/20/2017. COMPARISON: CT head dated 12/23/2016 and MR head dated 12/25/2016. TECHNIQUE: Contiguous axial imaging was performed from the skull base to vertex before and after the administration of 94 mL of Optiray 320 intravenous contrast. DLP: 1344.51 mGy-cm. FINDINGS: There is an irregular, lobulated area of hypodensity within the right frontal lobe measuring approximately 3.6 x 2.7 cm, in the region of the previously identified intraparenchymal lesions. There is peripheral enhancement on the postcontrast images. There is mild hypoattenuation of the adjacent parenchyma, which could represent minimal edema. There is no significant mass effect or midline shift. These findings could represent postsurgical change, however, recurrent tumor cannot be entirely excluded. MR evaluation could be considered to help further characterize if there are no contraindications. No new enhancing intraparenchymal lesion is identified. There is no evidence of acute intracranial hemorrhage or territorial infarction. No extra-axial fluid collections are identified. The ventricles are normal in size. A craniotomy is noted within the right temporal bone with associated postsurgical changes. The mastoid air cells and visualized portions of the paranasal sinuses are well aerated. IMPRESSION: Hypodensity with associated peripheral enhancement and mild adjacent parenchymal edema in the region of the previously seen intraparenchymal masses. No significant mass effect or midline shift. These findings could represent post surgical change, however, recurrent tumor cannot be entirely excluded. MR evaluation could be considered to help further characterize if there are no contra indications.
[2017-03-29] MEDS ORDERED: KEPPRA500 M1 PO (19:38)
[2017-03-29] MEDS ORDERED: DEXAMETHASONE2 M1 PO (19:38)
[2017-03-29 19:43] VITALS: BP 133/62
== END 2017-03-29 19:57 ==
LOC: ERH 16:29
PROVIDERS: Physician Assistant Medical
DX: R20.2 Paresthesia of skin (principal)

== ENCOUNTER 2017-04-19 03:08 | Emergency (ER) | payer OTHER ==
[~2017-04-19 03:08] MED LIST changes: +DEXAMETHASONE2 M1 PO; +ESCITALOPRAM OX20 MG PO; +KEPPRA750 M1 PO; +LORAZEPAM0.5 M1 PO; +ROZEREM8 M1 PO
[2017-04-19 03:56] VITALS: BP 106/74
--- NOTE | 2017-04-19 04:07 | ED HEAD/FACIAL INJ COMPLAINT ---
History of Present Illness General Chief Complaint: Laceration Procedure Stated Complaint: LIP LAC Source: patient Exam Limitations: no limitations Vital Signs & Intake/Output Vital Signs & Intake/Output Vital Signs Date Time Temp Pulse Resp B/P B/P Pulse O2 O2 Flow FiO2 Mean Ox Delivery Rate 04/19 0356 95.7 95 20 106/74 95 Room Air Allergies Coded Allergies: NO KNOWN ALLERGIES (11/01/11) Reconcile Medications Atorvastatin Calcium 10 MG TABLET 1 TAB PO 1700 HLD (Reported) Dexamethasone 4 MG TABLET 4 TAB PO BID SWELLING IN BRAIN (Reported) Dexamethasone 2 MG TABLET 5 TAB PO TID INTRACRANIAL LESION Escitalopram Oxalate 20 MG TABLET 1 TAB PO QAM MENTAL HEALTH (Reported) Levetiracetam (Keppra) 750 MG TABLET 1 TAB PO BID SEIZURE PREVENTION ( Reported) Levetiracetam (Keppra) 500 MG TABLET 2 TAB PO BID SEIZURE PPX Lisinopril 40 MG TABLET 1 TAB PO AT BEDTIME HTN (Reported) Lorazepam 0.5 MG TABLET 1 TAB PO AD PRN ANXIETY (Reported) Ramelteon (Rozerem) 8 MG TABLET 1 TAB PO QPM SLEEP (Reported) Triage Note: HIT IN UPPERIP WITH POLE,LACERATION Triage Nurses Notes Reviewed? yes Onset: Abrupt Severity: mild Location: right upper lip Method of Injury: incised Loss of Consciousness: no loss of consciousness Associated Symptoms: bleeding self resolved HPI: 67 yo woman, h/o glioblastoma, s/p surgery january 2017 presents with upper lip laceration. "I got my lip caught on a pole." Past History Travel History Traveled to [place] past 21 day No Medical History Any Pertinent Medical History? 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 No Review of Systems Review of Systems Constitutional: Reports: no symptoms. EENTM: Reports: no symptoms. Respiratory: Reports: no symptoms. Cardiovascular: Reports: no symptoms. GI: Reports: no symptoms. Genitourinary: Reports: no symptoms. Musculoskeletal: Reports: no symptoms. Skin: Reports: no symptoms. Neurological/Psychological: Reports: no symptoms. Hematologic/Endocrine: Reports: no symptoms. Immunologic/Allergic: Reports: no symptoms. All Other Systems: Reviewed and Negative Physical Exam Physical Exam General Appearance: well developed/nourished, mild distress Head: 1.5 cm L shaped upper lip laceration, not crossing the [place] border. , no dental injury Eyes: Bilateral: normal appearance. Ears, Nose, Throat: normal pharynx, normal ENT inspection, hearing grossly normal Neck: normal inspection, supple Respiratory: normal breath sounds Cardiovascular: regular rate/rhythm Gastrointestinal: soft, non-tender Back: normal inspection Extremities: normal inspection, normal range of motion, no edema Psychiatric: awake, alert, oriented x 3 Cranial Nerves: normal hearing, normal speech, PERRL Coordination/Gait: normal gait Motor/Sensory: no motor/sensory deficits Skin: intact, normal color, warm/dry Lymphatic: no anterior cervical jim Progress Differential Diagnosis: laceration vs other. Plan of Care: Current Medications Sig/Arnoldo Start time Last Medication Dose Stop Time Status Admin Lidocaine 20 ML ONCE ONE 04/19 415 UNVr (Lidocaine 1%) 04/19 416 Departure Departure Disposition: HOME OR SELF CARE Condition: Stable Clinical Impression Primary Impression: Lip laceration Referrals: DONNY SANCHEZ MD (PCP/Family) Departure Forms: Customer Survey General Discharge Information Procedures Laceration/Wound Repair Laceration/Wound Repair: Wound Location: face Wound's Depth, Shape: irregular, linear Wound Length (cm): 1.5 Wound Explored: clean, no foreign body removed Irrigated w/ Saline (ccs): 100 Betadine Prep? Yes Anesthesia: 1% lidocaine Volume Anesthetic (ccs): 3 Wound Repaired With: sutures Suture Size/Type: 4:0, nylon Number of Sutures: 3 Tetanus Status: up to date
== END 2017-04-19 04:44 ==
LOC: ERH 03:08
DX: S01.511A Laceration without foreign body of lip, initial encounter (principal); W22.8XXA Striking against or struck by other objects, initial encounter; Y93.9 Activity, unspecified; Y92.9 Unspecified place or not applicable
CPT/HCPCS: 90471; 90714